=== PATIENT | male | born 1975 | race Two or more races ===

== ENCOUNTER 2019-04-14 16:16 | Emergency (ER) | payer MEDICAID, OTHER ==
[~2019-04-14] VITALS: Ht 167.6 cm; Wt 78.5 kg
--- NOTE | 2019-04-14 16:30 | NUR ---
RT Pt brought into ER with a Portex 7 trach on the vent with noted settings. Pt switched over to hospital ventilator, alarms are set an audible with BVM by bedside. GLUE WHEEL OPERATOR cuff pressure noted. Vent is plugged into red outlet. No respiratory distress noted at this time, will continue to monitor. Addendum: 04/14/19 at 1653 by ABRIL KILLIAN RT Amended: Links added.
--- NOTE | 2019-04-14 16:40 | NUR ---
ARAMIS Franco from [facility]"low O2dats vent settings was changed AC-SIMV, prior to dialysis appointment when we got to dialysis he desat". TO ER BED 8, HOOKED TO MONITOR, PROVIDED W WARM BLANKET, RT AT BEDSIDE, HOOKED TO VENTILATOR W SETTINGS: A/C 12, VT: 500, PEEP: 5, O2: 40%. DR SPEARS AT BEDSIDE
--- NOTE | 2019-04-14 17:32 | NUR ---
NOVELTY BALLOON ASSEMBLER AND PACKER AT BEDSIDE
--- NOTE | 2019-04-14 17:39 | NUR ---
TOBACCO CURER AT BEDSIDE
[2019-04-14] MEDS ORDERED: SIME80TA15 PO (17:41)
[2019-04-14] MEDS ORDERED: HEPA100D33 SQ (17:41)
[2019-04-14] MEDS ORDERED: CARB15DR99 OP (17:41)
[2019-04-14] MEDS ORDERED: INSU100V39 SQ (17:41)
[2019-04-14] MEDS ORDERED: DOCU-141 PO (17:41)
[2019-04-14] MEDS ORDERED: DARB40VI IJ (17:41)
[2019-04-14] MEDS ORDERED: FAMO20TA8 PO (17:41)
[2019-04-14] MEDS ORDERED: INSU100I26 SQ (17:41)
[2019-04-14] MEDS ORDERED: LIDOCAINE VISCOUS MM (17:41)
[2019-04-14] MEDS ORDERED: LACT1CAP61 PO (17:41)
[2019-04-14 17:50] LABS: BASOPHILS % (AUTO) 0.3 % (0.0-2.0); EOSINOPHILS % (AUTO) 2.4 % (0.0-6.0); HEMATOCRIT 32 % (39-51); HEMOGLOBIN 10.9 g/dL (13.5-17.5); LYMPHOCYTES # (AUTO) 0.8 /CMM (0.8-4.8); LYMPHOCYTES % (AUTO) 5.2 % (20.0-44.0); MEAN CORPUSCULAR HGB CONC 34 g/dl (31.0-36.0); MEAN CORPUSCULAR VOLUME 95 fL (80-96); MONOCYTES # (AUTO) 0.7 /CMM (0.1-1.30); MONOCYTES % (AUTO) 4.2 % (2.0-12.0); NEUTROPHILS % (AUTO) 87.9 % (43.0-81.0); RED BLOOD CELL COUNT(AUTO) 3.42 MIL/uL (4.5-6.0); WHITE BLOOD COUNT (AUTO) 15.9 K/uL (4.3-11.0)
[2019-04-14] MEDS ORDERED: MIDO5TAB GT (17:50)
[2019-04-14] MEDS ORDERED: ONDA4TAB11 GT (17:50)
[2019-04-14] MEDS ORDERED: NUT.237L67 GT (17:50)
[2019-04-14] MEDS ORDERED: SODI650T GT (17:50)
[2019-04-14] MEDS ORDERED: BISA10SU11 RC (17:50)
[2019-04-14] MEDS ORDERED: MIDO10TA GT (17:50)
[2019-04-14] MEDS ORDERED: ACET325T53 GT (17:50)
[2019-04-14] MEDS ORDERED: POLY17PO4 GT (17:50)
[2019-04-14] MEDS ORDERED: DIPH-530 GT (17:50)
[2019-04-14] MEDS ORDERED: ACET-868 GT (17:50)
[2019-04-14 17:56] LABS: ABG BASE EXCESS -4.2 mmol/L; ABG OXYGEN SATURATION 90.4 % (92.0-98.5); ABG PCO2 40.8 mmHg (35.0-45.0); ABG PH 7.336 (7.350-7.450); ABG PO2 64.1 mmHg (75.0-100.0); AaDO2 174.2 mmHg; COHb 0.3 % (0.5-1.5); MetHb 0.5 % (0.0-1.5); O2Hb 89.7 % (94.0-97.0); PEEP,BG 5 cm H2O; SITE, ABG Right Radial; VT, ABG 500 mL
[2019-04-14 18:11] LABS: CALCIUM, SERUM 9.4 mg/dL (8.5-10.1); CREATININE 6.7 mg/dL (0.6-1.3); POTASSIUM 4.3 mmol/L (3.5-5.1)
[2019-04-14 18:13] LABS: PLATELET COUNT (AUTO) 267 /CMM (150-450)
--- NOTE | 2019-04-14 18:17 | NUR ---
[facility] RT UNIT ETA 2044 OR 2129
--- NOTE | 2019-04-14 18:25 | NUR ---
REPORT GIVEN TO RAMESH GILLIS OF [facility] [phone]
--- NOTE | 2019-04-14 18:31 | NUR ---
CALLED BACK HERMAN AMARAL, SPOKE TO RAMESH GILLIS, MADE AWARE OF NEW CHAIR TIME FOR DIALYSIS 04/15 AT 1:15PM AT [facility].
--- NOTE | 2019-04-14 19:42 | NUR ---
Patient discharged to [id number] in stable condition, will be brought back to [facility]. Report given to EMT. Written and verbal after care instructions given. EMT verbalizes understanding of instruction.
[2019-04-14 19:45] VITALS: BP 131/87
[2019-04-14 20:19] LABS: BAND % (MANUAL) 2 % (0.0-5.0); EOSINOPHILS % (MANUAL) 1 % (0-4); LYMPHOCYTES % (MANUAL) 8 % (16-48); MONOCYTES % (MANUAL) 5 % (0-11.0); NEUTROPHILS % (MANUAL) 84 (42-76)
== END 2019-04-14 19:47 ==
LOC: ER 16:21
DX: J96.10 Chronic respiratory failure, unspecified whether with hypoxia or hypercapnia (principal); E11.22 Type 2 diabetes mellitus with diabetic chronic kidney disease; I12.0 Hypertensive chronic kidney disease with stage 5 chronic kidney disease or end stage renal disease; N18.6 End stage renal disease; K56.7 Ileus, unspecified; Z99.2 Dependence on renal dialysis; Z93.1 Gastrostomy status; Z98.890 Other specified postprocedural states; Z79.4 Long term (current) use of insulin; Z79.899 Other long term (current) drug therapy; Z79.01 Long term (current) use of anticoagulants
CPT/HCPCS: 31720; 36415; 36600; 71045-TC; 80048-TC; 82803-TC; 85025-TC; 85730-TC

== ENCOUNTER 2019-05-09 20:47 | Inpatient (IN) | payer OTHER ==
[~2019-05-09] VITALS: Ht 167.6 cm; Wt 70.8 kg
[~2019-05-09 20:47] MED LIST: ACET-868 GT; ACET325T53 GT; BISA10SU11 RC; CARB15DR99 OP; DARB40VI IJ; DIPH-530 GT; DOCU-141 PO; FAMO20TA8 PO; HEPA100D33 SQ; INSU100I26 SQ; INSU100V39 SQ; LACT1CAP61 PO; LIDOCAINE VISCOUS MM; MIDO10TA GT; MIDO5TAB GT; NUT.237L67 GT; ONDA4TAB11 GT; POLY17PO4 GT; SIME80TA15 PO; SODI650T GT
--- NOTE | 2019-05-09 20:55 | NUR ---
"BIB PRIVATE AMBULANCE FROM DIALYSIS C/O LOW BP" PT AAOX0, PT ON MONITOR, NAD NOTED, PENDING MD OVALLE
[2019-05-09] MEDS ORDERED: IV NS 0.9% 500 ML BAG IV ONE (21:30)
[2019-05-09 21:42] LABS: BASOPHILS # (AUTO) 0.1 /CMM (0.0-0.2); BASOPHILS % (AUTO) 0.8 % (0.0-2.0); EOSINOPHILS % (AUTO) 3.3 % (0.0-6.0); HEMATOCRIT 27 % (39-51); HEMOGLOBIN 9.3 g/dL (13.5-17.5); LYMPHOCYTES # (AUTO) 1.9 /CMM (0.8-4.8); LYMPHOCYTES % (AUTO) 15.6 % (20.0-44.0); MEAN CORPUSCULAR HGB CONC 34 g/dl (31.0-36.0); MEAN CORPUSCULAR VOLUME 95 fL (80-96); MONOCYTES # (AUTO) 0.9 /CMM (0.1-1.30); MONOCYTES % (AUTO) 6.9 % (2.0-12.0); NEUTROPHILS # (AUTO) 9.2 /CMM (1.8-8.9); NEUTROPHILS % (AUTO) 73.4 % (43.0-81.0); PLATELET COUNT (AUTO) 358 /CMM (150-450); WHITE BLOOD COUNT (AUTO) 12.5 K/uL (4.3-11.0)
[2019-05-09 21:51] LABS: CALCIUM, SERUM 9.3 mg/dL (8.5-10.1); CARBON DIOXIDE 26 mmol/L (21-32); CHLORIDE 100 mmol/L (98-107); CREATININE 2.8 mg/dL (0.6-1.3); GLUCOSE 147 mg/dL (74-106); POTASSIUM 3.6 mmol/L (3.5-5.1); SODIUM SERUM 137 mmol/L (136-145); UREA NITROGEN, BLOOD 28 mg/dL (7-18)
[2019-05-09 21:58] LABS: ALANINE AMINOTRANSFERASE 95 U/L (12-78); ALBUMIN 3.2 g/dL (3.4-5.0); ALKALINE PHOSPHATASE 259 U/L (46-116); ASPARTATE AMINOTRANSFERASE 46 U/L (15-37); BILIRUBIN,DIRECT 0.1 mg/dL (0.0-0.2); BILIRUBIN,TOTAL 0.2 mg/dL (0.2-1.0); TOTAL PROTEIN, SERUM 8.1 g/dL (6.4-8.2)
[2019-05-09] MEDS ORDERED: oxyCODONE HCL SR 20MG TAB.SR.12H PO STA (22:24)
[2019-05-09] MEDS ORDERED: VANCOMYCIN HCL 1 GM in IV D5W 260 ML IV ONE (22:30)
[2019-05-09] MEDS ORDERED: CEFTRIAXONE 1GM BAG (ER ONLY) 1 GM/50 ML PIGGYBACK IV ONE (22:30)
--- NOTE | 2019-05-09 22:41 | NUR ---
CALLED FOR BED, TURNED IN MOVE SHEET, AND PAGED PLASTICS PRODUCTION MACHINE OPERATOR.
--- NOTE | 2019-05-09 22:42 | NUR ---
TELE BED 115-1
[2019-05-09] MEDS ORDERED: VANCOMYCIN 1 GM VIAL ONE (22:58)
[2019-05-09] MEDS ORDERED: CEFTRIAXONE 1GM BAG (ER ONLY) 50 ML IV ONE (22:58)
--- NOTE | 2019-05-09 23:54 | NUR ---
REPORT GIVEN TO ALEXANDRA VELEZ FOR SHARON; PT WILL BE TRANSPORTED TO [address] [place] [address] VIA ACLS PROTOCOL
[2019-05-10] VITALS: BP 99/36
[2019-05-10] MEDS ORDERED: POLYETHYLENE GLYCOL 3350 17 GM POWD.PACK GT PRN
[2019-05-10] MEDS ORDERED: SODIUM BICARBONATE 650 MG TABLET GT PRN
[2019-05-10] MEDS ORDERED: ONDANSETRON 4 MG TAB.RAPDIS GT PRN
[2019-05-10] MEDS ORDERED: MORPHINE SULFATE INJ 2 MG/ML DISP.SYRIN IV PRN
[2019-05-10] MEDS ORDERED: MAGNESIUM HYDROXIDE 30 ML UDC PO PRN
[2019-05-10] MEDS ORDERED: ZOLPIDEM TARTRATE 5 MG TABLET PO PRN
[2019-05-10] MEDS ORDERED: HYDROCODONE/APAP 5/325MG 1 EACH TABLET PO PRN
[2019-05-10] MEDS ORDERED: ONDANSETRON HCL/PF 4 MG/2 ML VIAL IVP PRN
[2019-05-10] MEDS ORDERED: BISACODYL SUPP (10 MG) 10 MG/SUPP.RECT SUPP.RECT RC PRN
[2019-05-10] MEDS ORDERED: MAG HYDROX/AL HYDROX/SIMETH 30 ML UDC PO PRN
[2019-05-10] MEDS ORDERED: ACETAMINOPHEN 325 MG TABLET PO PRN
[2019-05-10] MEDS ORDERED: Z GUARD REMEDY 2 OZ OINT TP PRN
[2019-05-10] MEDS ORDERED: DEXTROSE 50%-WATER 50 ML DISP.SYRIN IV PRN
[2019-05-10] MEDS ORDERED: NEPRO VAN 237 ML CAN GT SCH
[2019-05-10] MEDS ORDERED: ZOSYN IVPB 3.375 G in IV D5W 50ml IV ONE (01:00)
[2019-05-10] MEDS: NEPRO 1,000 ML BOTTLE GT PRN (02:34)
[2019-05-10 04:00] VITALS: BP 88/42
[2019-05-10] MEDS: SIMETHICONE 80 MG TAB.CHEW PO SCH ×3 (05:48→21:11)
[2019-05-10] MEDS: MIDODRINE HCL (5MG) 5 MG TABLET GT PRN ×2 (05:53→13:50)
--- NOTE | 2019-05-10 06:17 | NUR ---
RN NOTES RECEIVED PATIENT AT ABOUT 2345 IN STABLE CONDITION. NO APPARENT DISTRESS NOTED. BREATHING EVEN AND UNLABORED, VENT SETTING WELL TOLERATED. RECEIVED FROM ER, VIA STRETCHER ACCOMPANIED BY 3 STAFF. EYES CLOSED, OBTUNDED. NO PHYSICAL MANIFESTATION OF PAIN OR DISCOMFORT. VITAL SIGNS WNL. STARTED FEEDING AT 45ML/HR, TOLERATING WELL. ADMITTED FOR LOW BLOOD PRESSURE AND SEPSIS. KEPT CLEAN AND DRY. WILL ENDORSE TO AM SHIFT FOR CONTINUITY OF CARE.
[2019-05-10] MEDS: BLOOD SUGAR DIAGNOSTIC 1 EACH STRIP IN SCH ×4 (06:35→21:22)
[2019-05-10] MEDS: INSULIN REGULAR, HUMAN 100 UNIT/ML 3 ML VIAL SQ PRN ×4 (06:36→21:23)
--- NOTE | 2019-05-10 07:30 | NUR ---
WAFER MOUNTER AM NOTES RECEIVED PATIENT IN BED, OPEN EYES, OBTUNDED, WITH PORTEX 7 TO MECHANICAL VENT, SETTING - AC 12 TV 500 FIO2 40% PEEP 5, BREATHING EVEN AND UNLABORED, SR HR 89 ON TELE MONITOR, NO SIGNS OF PAIN, OWEN MIDLINE LEAKING, WILL START ANOTHER IV ACCESS. RIGHT UPPER CHEST PERMA CATH CDI DRESSING, SITE CLEAR. GTF NEPRO AT 45 ML/HR, O RESIDUAL. SEE NURSING FLOWSHEET FOR SKIN ISSUES. SAFETY MEASURES IN PLACE. CALL LIGHT WITHIN REACH. WILL TURN AND REPOSITION Q 2HOURS. WILL CONT TO MONITOR.
[2019-05-10 08:00] VITALS: BP 95/45
[2019-05-10] MEDS ORDERED: FEE PK DOSING 1 MIN EA MC ONE (08:23)
[2019-05-10] MEDS: FAMOTIDINE (20 MG) 20 MG TABLET PO SCH (08:29)
[2019-05-10] MEDS: PANTOPRAZOLE 40 MG TABLET.DR PO SCH (08:29)
[2019-05-10] MEDS: DOCUSATE SODIUM 100 MG CAPSULE PO SCH ×2 (08:29→21:11)
[2019-05-10] MEDS: HEPARIN SODIUM, PORCINE 5000 UNITS/1 ML VIAL SQ SCH ×2 (08:32→21:13)
[2019-05-10] MEDS: INSULIN GLARGINE, 100 UNIT/ML CARTRIDGE SQ SCH ×2 (08:36→21:22)
[2019-05-10] MEDS ORDERED: INSULIN GLARGINE,BASAGLAR 100 UNIT/ML INSULN.PEN SQ SCH (09:00)
[2019-05-10] MEDS ORDERED: VANCOMYCIN POST DIALYSIS 500MG IV PRN ×2 (09:00)
[2019-05-10] MEDS ORDERED: oxyCODONE HCL SR 20MG TAB.SR.12H PO SCH (09:00)
--- NOTE | 2019-05-10 09:30 | NUR ---
NEWSPAPER DISTRIBUTOR SUPERVISOR NOTES DUE MEDS GIVEN.
[2019-05-10] MEDS: ZOSYN IVPB 2.25 G in IV D5W 50ml IV SCH ×2 (10:01→17:29)
[2019-05-10 10:37] LABS: BASOPHILS # (AUTO) 0.1 /CMM (0.0-0.2); BASOPHILS % (AUTO) 0.6 % (0.0-2.0); EOSINOPHILS % (AUTO) 4.6 % (0.0-6.0); HEMATOCRIT 25 % (39-51); HEMOGLOBIN 8.5 g/dL (13.5-17.5); LYMPHOCYTES # (AUTO) 1.7 /CMM (0.8-4.8); LYMPHOCYTES % (AUTO) 18.7 % (20.0-44.0); MEAN CORPUSCULAR HGB CONC 34 g/dl (31.0-36.0); MEAN CORPUSCULAR VOLUME 93 fL (80-96); MONOCYTES # (AUTO) 0.7 /CMM (0.1-1.30); MONOCYTES % (AUTO) 7.1 % (2.0-12.0); NEUTROPHILS # (AUTO) 6.3 /CMM (1.8-8.9); PLATELET COUNT (AUTO) 345 /CMM (150-450); RED BLOOD CELL COUNT(AUTO) 2.69 MIL/uL (4.5-6.0); WHITE BLOOD COUNT (AUTO) 9.1 K/uL (4.3-11.0)
[2019-05-10 10:49] LABS: ALBUMIN 2.7 g/dL (3.4-5.0); BILIRUBIN,TOTAL 0.3 mg/dL (0.2-1.0); CALCIUM, SERUM 8.7 mg/dL (8.5-10.1); CREATININE 3.4 mg/dL (0.6-1.3); MAGNESIUM 2.1 mg/dL (1.8-2.4); POTASSIUM 3.5 mmol/L (3.5-5.1)
[2019-05-10 11:18] LABS: THYROID STIMULATING HORMONE 2.171 uIU/mL (0.358-3.74)
[2019-05-10 12:00] VITALS: BP 80/35
[2019-05-10] MEDS ORDERED: PIPERACILLIN /TAZOBACTAM 3.375 G in IV D5W 50 ML IV SCH ×3 (12:00)
--- NOTE | 2019-05-10 12:00 | NUR ---
SPORTS MEDICINE TRAINER NOTES ACCUCHECK DONE. BS 132 MG/DL. 2 UNITS HUM R GIVEN PER SS.
[2019-05-10] MEDS: CARBOXYMETHYLCELLULOSE SODIUM 0.4 ML DROPERETTE EACHEYE SCH ×2 (12:11→21:12)
--- NOTE | 2019-05-10 13:50 | NUR ---
WORD PROCESSOR OPERATOR NOTES DR. SAMREEN WILSON NOTIFIED PT'S BP AT 80/35 MIDODRINE 5 MG GIVEN
--- NOTE | 2019-05-10 14:15 | NUR ---
NO PEEP PER DR. VERGARA. Addendum: 05/10/19 at 1417 by ROSLYN MCKAY RT Amended: Links added.
--- NOTE | 2019-05-10 14:30 | NUR ---
RN NOTES BP RECHECKED 93/48. PER DR. WILSON, GIVE 500 ML NS BOLUS
[2019-05-10] MEDS ORDERED: IV NS 0.9% 500 ML IV ONE (15:00)
[2019-05-10 16:00] VITALS: BP 101/46
--- NOTE | 2019-05-10 19:40 | NUR ---
ICU/SUBCONTRACT ADMINISTRATOR RECEIVED REPORT FROM DAY NURSE. SEE NURSING FLOW SHEET FOR ASSESSMENT ALONG WITH ANY SKIN ISSUES WHICH ARE ADDRESSED ALONG WITH INTERVENTIONS TO EACH ON THE FLOWSHEET. THERE ARE NO IVF THAT ARE ADDRESSED ON THE FLOWSHEET. PT WAS TURNED AND REPOSITIONED FOR COMFORT AND CARE. NO ACUTE DISTRESS SEEN AT THIS TIME. WILL CONTINUE TO MONITOR THIS PT.
[2019-05-10 20:00] VITALS: BP 95/52
--- NOTE | 2019-05-10 22:10 | NUR ---
CARLA/RADIOLOGIST DIAGNOSTIC PT WAS GIVEN PM CARE, NO BM SEEN AT THIS TIME, WILL MONITOR THIS. PT REMAINS ON CURRENT VENT SETTINGS WITH SATURATION AT 98-100%. PT WAS TURNED AND REPOSITIONED FOR COMFORT AND CARE. WILL CONTINUE TO MONITOR THIS PT. NO ACUTE DISTRESS SEEN AT THIS TIME.
--- NOTE | 2019-05-10 22:40 | NUR ---
CARLA/CASH CONTROLLER PT'S BLOOD SUGAR WAS 160, WHICH WAS COVERED WITH 30 OF LANTUS. WILL CONTINUE TO MONITOR THIS PT'S SUGAR ORDERED BY .
[2019-05-10] MEDS ORDERED: MEROPENEM 500 MG VIAL IV ONE (23:06)
--- NOTE | 2019-05-10 23:10 | NUR ---
CARLA/WOOD BOAT BUILDER SUPERVISOR INFECTIOUS DISEASED HERE TO SEE PT, ORDERED MERREM IVPB AND DISCONTINUED ZOSYN. CHANGES WERE MADE AND NOTIFIED CHARGE NURSE WHO THEN HUNG UP THE NEW ANTIBIOTICS. ALL ORDERED WERE CARRIED OUT.
[2019-05-10] MEDS: MEROPENEM 500 MG in IV NS 0.9% 50 ML IV SCH (23:14)
[2019-05-11] VITALS: BP 118/71
--- NOTE | 2019-05-11 00:15 | NUR ---
CARLA/PRESS OPERATOR PRINTING NEW MIDLINE PLACED ON PT TO THE LEFT UPPER ARM, 18G. RIGHT WAS LEAKING WHICH WAS D/C'D.
--- NOTE | 2019-05-11 03:16 | NUR ---
CARLA/SPA MANAGER SPUTUM WAS COLLECTED FOR CULTURE, WHICH WAS ORDERED BY ID.
[2019-05-11 04:00] VITALS: BP 108/61
--- NOTE | 2019-05-11 05:45 | NUR ---
CARLA/DOUGHNUT ICER MACHINE AM LABS WERE DONE, AWAIT FOR ANY ABNORMAL RESULTS.
[2019-05-11] MEDS: SIMETHICONE 80 MG TAB.CHEW PO SCH ×3 (05:52→21:43)
[2019-05-11] MEDS: CARBOXYMETHYLCELLULOSE SODIUM 0.4 ML DROPERETTE EACHEYE SCH ×3 (05:52→21:00)
[2019-05-11 06:57] LABS: BASOPHILS # (AUTO) 0.1 /CMM (0.0-0.2); BASOPHILS % (AUTO) 0.6 % (0.0-2.0); EOSINOPHILS % (AUTO) 4.6 % (0.0-6.0); HEMATOCRIT 26 % (39-51); HEMOGLOBIN 8.8 g/dL (13.5-17.5); LYMPHOCYTES # (AUTO) 1.9 /CMM (0.8-4.8); LYMPHOCYTES % (AUTO) 19.4 % (20.0-44.0); MEAN CORPUSCULAR HGB CONC 34 g/dl (31.0-36.0); MEAN CORPUSCULAR VOLUME 94 fL (80-96); MONOCYTES # (AUTO) 0.6 /CMM (0.1-1.30); MONOCYTES % (AUTO) 6.6 % (2.0-12.0); NEUTROPHILS # (AUTO) 6.7 /CMM (1.8-8.9); NEUTROPHILS % (AUTO) 68.8 % (43.0-81.0); PLATELET COUNT (AUTO) 365 /CMM (150-450); RED BLOOD CELL COUNT(AUTO) 2.73 MIL/uL (4.5-6.0); WHITE BLOOD COUNT (AUTO) 9.7 K/uL (4.3-11.0)
--- NOTE | 2019-05-11 07:30 | NUR ---
OBJECTIVE C DEVELOPER AM NOTES RECEIVED PATIENT IN BED, OPEN EYES, OBTUNDED, WITH PORTEX 7 TO MECHANICAL VENT, SETTING - AC 12 TV 500 FIO2 40% PEEP 5, BREATHING EVEN AND UNLABORED, SR HR 89 ON TELE MONITOR, NO SIGNS OF PAIN, PIERRE MIDLINE IN PLACE. CDI DRESSING. RT HAND IV ACCESS FLUSHES WELL. ALL SITES CLEAR. RIGHT UPPER CHEST PERMA CATH CDI DRESSING, SITE CLEAR. GTF NEPRO AT 45 ML/HR, O RESIDUAL. SEE NURSING FLOWSHEET FOR SKIN ISSUES. SAFETY MEASURES IN PLACE. CALL LIGHT WITHIN REACH. WILL TURN AND REPOSITION Q 2HOURS. WILL CONT TO MONITOR.
[2019-05-11 07:31] LABS: CALCIUM, SERUM 8.9 mg/dL (8.5-10.1); CREATININE 4.7 mg/dL (0.6-1.3); MAGNESIUM 2.3 mg/dL (1.8-2.4); PHOSPHORUS 4.3 mg/dL (2.5-4.9); POTASSIUM 4.1 mmol/L (3.5-5.1)
[2019-05-11 08:00] VITALS: BP 109/70
[2019-05-11] MEDS: BLOOD SUGAR DIAGNOSTIC 1 EACH STRIP IN SCH ×4 (08:18→21:40)
--- NOTE | 2019-05-11 08:18 | NUR ---
SCULLION CHIEF NOTES ACCUCHECK DONE. BS 161 MG/DL. 3 UNITS HUM R GIVEN PER SS.
[2019-05-11] MEDS: PANTOPRAZOLE 40 MG TABLET.DR PO SCH (08:19)
[2019-05-11] MEDS: FAMOTIDINE (20 MG) 20 MG TABLET PO SCH (08:34)
[2019-05-11] MEDS: INSULIN GLARGINE, 100 UNIT/ML CARTRIDGE SQ SCH ×2 (08:34→21:46)
[2019-05-11] MEDS: DOCUSATE SODIUM 100 MG CAPSULE PO SCH ×2 (08:35→21:43)
[2019-05-11] MEDS: HEPARIN SODIUM, PORCINE 5000 UNITS/1 ML VIAL SQ SCH ×2 (08:36→21:45)
[2019-05-11] MEDS: INSULIN REGULAR, HUMAN 100 UNIT/ML 3 ML VIAL SQ PRN ×3 (08:38→21:46)
--- NOTE | 2019-05-11 09:15 | NUR ---
GERIATRIC ASSISTANT NOTES PATIENT PICKED UP FOR CT OF ABDOMEN WITHOUT CONTRAST.
--- NOTE | 2019-05-11 09:30 | NUR ---
HEAD SAWYER NOTES DUE MEDS GIVEN
--- NOTE | 2019-05-11 11:53 | NUR ---
DROP HAMMER MECHANIC NOTES ACCUCHECK DONE. BS 109 MG/DL. NO INSULIN COVERAGE GIVEN AT THIS TIME. HD NURSE ALLAN AT BEDSIDE.
[2019-05-11 12:00] VITALS: BP 97/57
[2019-05-11] MEDS: HYDROCORTISONE SOD SUCCINATE 100 MG/2 ML VIAL IV SCH ×2 (13:30→17:16)
[2019-05-11] MEDS ORDERED: VANCOMYCIN 1 GM in IV D5W 250 ML IV ONE (14:30)
[2019-05-11 16:00] VITALS: BP 127/50
--- NOTE | 2019-05-11 18:57 | NUR ---
THREAD GRINDER CLOSING NOTES PATIENT RESTING IN BED, OPEN EYES, OBTUNDED, WITH PORTEX 7 TO MECHANICAL VENT, SETTING - AC 12 TV 500 FIO2 40% PEEP 5, BREATHING EVEN AND UNLABORED, SR HR 76 ON TELE MONITOR, NO SIGNS OF PAIN, OWEN MIDLINE LEAKING, RIGHT HAND G 22 IV ACCESS, FLUSHES WELL, SITE CLEAR. RIGHT UPPER CHEST PERMACATH CDI DRESSING, SITE CLEAR. GTF NEPRO AT 45 ML/HR, O RESIDUAL. SAFETY MEASURES IN PLACE. CALL LIGHT WITHIN REACH. TURNED AND REPOSITIONED Q 2HOURS. ALL NEEDS MET. WILL ENDORSE TO NEXT SHIFT FOR SHARON.
[2019-05-11 20:00] VITALS: BP 139/89
--- NOTE | 2019-05-11 21:00 | NUR ---
SENIOR AIR DIRECTOR NOTES PATIENT SEEN AND EXAMINED BY JAY COMMUTATOR PRESSER FROM ID. PER JAY, COLLECT URINE SPECIMEN, OK TO USE IN-AND-OUT CATHETER X1
[2019-05-11] MEDS: MEROPENEM 500 MG in IV NS 0.9% 50 ML IV SCH (23:18)
[2019-05-12] VITALS: BP 112/81
--- NOTE | 2019-05-12 | NUR ---
IMPREGNATOR AND DRIER NOTES URINE SPECIMEN COLLECTED VIA IN-AND-OUT CATHETERIZATION, MINIMAL AMOUNT OF DARK BROWN URINE OUTPUT, ASEPTIC TECHNIQUE USED, SPECIMEN SENT TO LAB FOR TESTING. WILL MONITOR CLOSELY
[2019-05-12 01:51] LABS: APPEARANCE,URINE TURBID (CLEAR); BILIRUBIN,URINE 1+ (NEGATIVE); BLOOD, URINE 3+ Ery/uL (NEGATIVE); COLOR,URINE BROWN (YELLOW); KETONES,URINE NEGATIVE (NEGATIVE); LEUKOCYTE ESTERASE ,URINE 3+ (NEGATIVE); NITRITE, URINE POSITIVE (NEGATIVE); PROTEIN,URINE 3+ mg/dl (NEGATIVE); UGLUCOSE NEGATIVE (NEGATIVE)
[2019-05-12 01:59] LABS: BACTERIA,URINE Moderate /HPF (None Seen); SQUAMOUS EPITHELIAL CELL,UR Rare /HPF (None Seen); WBC,URINE TOO NUMEROUS TO COUN /HPF (0-3)
--- NOTE | 2019-05-12 03:05 | NUR ---
RT Pt elda remains on [facility] vent settings t/o the night. No resp distress noted and sx prn. Elda is secure and patent. Addendum: 05/12/19 at 0306 by SAIMA NAVARRO RT Amended: Links added.
[2019-05-12 04:00] VITALS: BP 113/74
[2019-05-12] MEDS: CARBOXYMETHYLCELLULOSE SODIUM 0.4 ML DROPERETTE EACHEYE SCH ×3 (04:21→21:01)
[2019-05-12] MEDS: SIMETHICONE 80 MG TAB.CHEW PO SCH ×3 (04:54→21:01)
[2019-05-12 06:37] LABS: CALCIUM, SERUM 8.5 mg/dL (8.5-10.1); CREATININE 4.2 mg/dL (0.6-1.3); MAGNESIUM 2.2 mg/dL (1.8-2.4); POTASSIUM 3.6 mmol/L (3.5-5.1)
[2019-05-12 06:45] LABS: BASOPHILS % (AUTO) 0.5 % (0.0-2.0); EOSINOPHILS % (AUTO) 0.3 % (0.0-6.0); HEMATOCRIT 24 % (39-51); HEMOGLOBIN 8.4 g/dL (13.5-17.5); LYMPHOCYTES # (AUTO) 1.3 /CMM (0.8-4.8); LYMPHOCYTES % (AUTO) 15.2 % (20.0-44.0); MEAN CORPUSCULAR HGB CONC 35 g/dl (31.0-36.0); MEAN CORPUSCULAR VOLUME 93 fL (80-96); MONOCYTES # (AUTO) 0.6 /CMM (0.1-1.30); MONOCYTES % (AUTO) 6.9 % (2.0-12.0); NEUTROPHILS # (AUTO) 6.7 /CMM (1.8-8.9); NEUTROPHILS % (AUTO) 77.1 % (43.0-81.0); PLATELET COUNT (AUTO) 360 /CMM (150-450); RED BLOOD CELL COUNT(AUTO) 2.61 MIL/uL (4.5-6.0); WHITE BLOOD COUNT (AUTO) 8.7 K/uL (4.3-11.0)
[2019-05-12 07:00] LABS: PHOSPHORUS 3.1 mg/dL (2.5-4.9)
--- NOTE | 2019-05-12 07:35 | NUR ---
RN NOTE: RECEIVED PATIENT IN BED, OBTUNDED ABLE TO SPONTANEOUSLY OPEN HIS EYES. NONVERBAL ON VENT-TRACH DEPENDENT AND WAS SATURATING 100% WITH CURRENT VENT SETTING. NO FACIAL GRIMACING NOTED. ON PARKING LINE PAINTER SR HR= 93. (R) CHEST PERMACATH WAS NOTED INTACT WITH DRY DRESSING IN PLACED. HOB ELEVATED. PATIENT WAS RECEIVING GT FEEDING OF NEPHRO @45ML/HR AND NO RESIDUAL WAS NOTED. BED ALARMED AND LOCKED AT ALL TIMES. CALL LIGHT WITHIN REACH. NEEDS ANTICIPATED. ON CONTACT ISOLATION DUE TO HX OF CRE URINE AND C. DIFF.
[2019-05-12 08:00] VITALS: BP 112/62
[2019-05-12] MEDS ORDERED: DEXTROSE 50%-WATER 50 ML DISP.SYRIN IV PRN (08:00)
[2019-05-12] MEDS: NEPRO 1,000 ML BOTTLE GT PRN (08:25)
[2019-05-12] MEDS: BLOOD SUGAR DIAGNOSTIC 1 EACH STRIP IN SCH ×4 (08:41→21:13)
[2019-05-12] MEDS ORDERED: PANTOPRAZOLE 40 MG/PACK PACK GT SCH (09:00)
[2019-05-12] MEDS: HYDROCORTISONE SOD SUCCINATE 100 MG/2 ML VIAL IV SCH ×3 (09:24→17:41)
[2019-05-12] MEDS: DOCUSATE SODIUM 100 MG CAPSULE PO SCH ×2 (09:24→21:01)
[2019-05-12] MEDS: FAMOTIDINE (20 MG) 20 MG TABLET PO SCH (09:24)
[2019-05-12] MEDS: HEPARIN SODIUM, PORCINE 5000 UNITS/1 ML VIAL SQ SCH ×2 (09:25→21:04)
[2019-05-12] MEDS: INSULIN GLARGINE, 100 UNIT/ML CARTRIDGE SQ SCH ×2 (09:28→21:11)
[2019-05-12 12:00] VITALS: BP 126/72
[2019-05-12] MEDS: INSULIN REGULAR, HUMAN 100 UNIT/ML 3 ML VIAL SQ PRN ×3 (12:44→21:13)
[2019-05-12] MEDS ORDERED: MERO500V IV (14:53)
[2019-05-12 16:00] VITALS: BP_SYST 126; BP_SYST 129; BP_DIAS 72; BP_DIAS 81
[2019-05-12] MEDS ORDERED: LACTOBACILLUS RHAMNOSUS GG 1 EACH CAP.SPRINK GT SCH (17:00)
--- NOTE | 2019-05-12 17:00 | NUR ---
RN NOTE: CALLED AND SPOKE WITH KORY POWELL, BROTHER AND MADE HIM AWARE ABOUT THE PATIENT'S DISCHARGE TO THE MEDICAL CENTER.
--- NOTE | 2019-05-12 17:30 | NUR ---
RN NOTE: [phone] AND NOBODY ANSWERED THE PHONE CALL. UNABLE TO LEAVE A VOICEMAIL WELL. CALLED AND SPOKE WITH KORY POWELL, BROTHER AND HE GAVE THE TELEPHONE NUMBER OF THE [facility]'S DIRECTOR OF NURSES CIARA [phone]. CALLED AND LEFT A VOICEMAIL TO CIARA, DON AND AWAITING FOR RESPONSE IN ORDER TO GIVE REPORT FOR THE PATIENT'S RETURN TO THE FACILITY. CALLED AND INFORMED ROUGE SIFTER AND MILLER VINCE.
--- NOTE | 2019-05-12 19:45 | NUR ---
RN NOTE: BEDSIDE REPORT WAS GIVEN TO PM SHIFT NURSE FOR CONTINUITY OF CARE AND TO CONTINUE CONTACTING THE [facility] IN ORDER TO GIVE REPORT. EXIT CARE WAS DONE. HANDED ALL PAPERWORK TO PM SHIFT NURSE FOR DISCHARGE. ETA FOR THE AMBULNZ (EMT WITH RT) PICK-UP WAS 8:30 PM.
[2019-05-12 20:00] VITALS: BP 129/80
[2019-05-12] MEDS: MEROPENEM 500 MG in IV NS 0.9% 50 ML IV SCH (21:14)
--- NOTE | 2019-05-12 23:40 | NUR ---
RN NOTES RECEIVED PATIENT IN BED WITH NO DISTRESS NOTED. BREATHING EVEN AND UNLABORED. VENT SETTING WELL TOLERATED. NO PHYSICAL MANIFESTATION OF PAIN OR DISCOMFORT. OBTUNDED. EYES CLOSED. KEPT CLEAN AND DRY PICKED UP BY AMBULANCE AT 2330 IN STABLE CONDITION. IN NO APPARENT DISTRESS. NO SIGN OF PAIN OR DISCOMFORT FOR DISCHARGED TO [facility] SPOKE WITH CIARA GARCIA), REPORT WAS GIVEN AT AROUND 0800 AND INFORMED OF AMBULANCE ARRIVAL AT 2300. ALL MEDS GIVEN.
== END 2019-05-12 23:55 | DRG 720 ==
LOC: ER 20:55 → TELE1 22:46
PROVIDERS: ADMIT Nurse Practitioner Acute Care; ATTEND Nurse Practitioner Acute Care
PROC: 5A1945Z Respiratory Ventilation, 24-96 Consecutive Hours (ICD-10-PCS; principal; 2019-05-09)
PROC: 05H633Z Insertion of Infusion Device into Left Subclavian Vein, Percutaneous Approach (ICD-10-PCS; 2019-05-10)
PROC: 5A1D70Z Performance of Urinary Filtration, Intermittent, Less than 6 Hours Per Day (ICD-10-PCS; 2019-05-11)
DX: A41.9 Sepsis, unspecified organism (principal); G93.1 Anoxic brain damage, not elsewhere classified; Z99.11 Dependence on respirator [ventilator] status; J96.10 Chronic respiratory failure, unspecified whether with hypoxia or hypercapnia; R53.2 Functional quadriplegia; A04.72 Enterocolitis due to Clostridium difficile, not specified as recurrent; E87.2 Acidosis; D68.59 Other primary thrombophilia; I95.9 Hypotension, unspecified; I12.0 Hypertensive chronic kidney disease with stage 5 chronic kidney disease or end stage renal disease; E44.1 Mild protein-calorie malnutrition; N18.6 End stage renal disease; Z93.1 Gastrostomy status; Z99.2 Dependence on renal dialysis; E11.22 Type 2 diabetes mellitus with diabetic chronic kidney disease; R13.10 Dysphagia, unspecified; J98.11 Atelectasis; Z79.4 Long term (current) use of insulin; D63.1 Anemia in chronic kidney disease; E88.09 Other disorders of plasma-protein metabolism, not elsewhere classified; D64.9 Anemia, unspecified; Z68.25 Body mass index [BMI] 25.0-25.9, adult; Z86.74 Personal history of sudden cardiac arrest; E27.40 Unspecified adrenocortical insufficiency
CPT/HCPCS: 31720; 36415; 71045-TC; 76700-TC; 80048-TC; 80053-TC; 80061-TC; 80076-TC; 80202-TC; 81000-TC; 82533; 82962-TC; 83605-TC; 83735-TC; 84100-TC; 84443-TC; 84484-TC; 85025-TC; 85730-TC; 86706; 87040-TC; 87070-TC; 87081-TC; 87086-TC; 87186-TC; 87340; 94002-TC; 94003-TC; 94760-TC; 94762-TC; 99082-TC; A4216; A4623; A7526; G0378; J0696; J1644; J1720; J1815; J2185; J2543; J3370; J7040; J7050; J7060; Q0162

== ENCOUNTER 2020-01-16 14:52 | Inpatient (IN) | payer OTHER ==
[~2020-01-16] VITALS: Ht 165.1 cm; Wt 71.4 kg
[~2020-01-16 14:52] MED LIST changes: -DARB40VI IJ; +DARB40VI IM; +DOCU-141 GT; -DOCU-141 PO; +FAMO20TA8 GT; -FAMO20TA8 PO; +LACT1CAP61 GT; -LACT1CAP61 PO; +MERO500V21 IV; -MIDO5TAB GT; +MIDO5TAB4 GT
--- NOTE | 2020-01-16 15:19 | NUR ---
PAGED VIP NEPHRO SAP PI DEVELOPER
--- NOTE | 2020-01-16 15:26 | NUR ---
RT NOTE PT PLACED ON VENT PER MD ORDER. SETTINGS ENDORSED BY TRANSPORT RT AC 14 500 40% +5. PT HAS SHILEY 6 XLT DISTAL CUFFED TRACH TUBE IN PLACE. CUFF INFLATED. TRACH TUBE MIDLINE AND SECURE. ALARMS SET PER PROTOCOL AND AUDIBLE. AMBU BAG AT BED SIDE. VENT PLUGGED IN TO RED OUTLET. NO DISTRESS NOTED. Addendum: 01/16/20 at 1529 by BLANCA HARVEY RT Amended: Links added.
--- NOTE | 2020-01-16 16:04 | NUR ---
PAGED DR HEREDIA
[2020-01-16 17:07] LABS: BASOPHILS # (AUTO) 0.2 /CMM (0.0-0.2); BASOPHILS % (AUTO) 1.3 % (0.0-2.0); EOSINOPHILS % (AUTO) 0.8 % (0.0-6.0); HEMATOCRIT 24 % (39-51); HEMOGLOBIN 7.9 g/dL (13.5-17.5); LYMPHOCYTES # (AUTO) 1.9 /CMM (0.8-4.8); LYMPHOCYTES % (AUTO) 14.5 % (20.0-44.0); MEAN CORPUSCULAR HGB CONC 33 g/dl (31.0-36.0); MEAN CORPUSCULAR VOLUME 91 fL (80-96); MONOCYTES # (AUTO) 0.8 /CMM (0.1-1.30); MONOCYTES % (AUTO) 6.4 % (2.0-12.0); NEUTROPHILS # (AUTO) 9.9 /CMM (1.8-8.9); RED BLOOD CELL COUNT(AUTO) 2.67 MIL/uL (4.5-6.0); WHITE BLOOD COUNT (AUTO) 12.9 K/uL (4.3-11.0)
[2020-01-16 17:29] LABS: ALBUMIN 2.8 g/dL (3.4-5.0); BILIRUBIN,TOTAL 0.3 mg/dL (0.2-1.0); CALCIUM, SERUM 9.3 mg/dL (8.5-10.1); CREATININE 6.9 mg/dL (0.6-1.3); TOTAL PROTEIN, SERUM 7.7 g/dL (6.4-8.2)
[2020-01-16 17:44] LABS: BAND % (MANUAL) 2 % (0.0-5.0); EOSINOPHILS % (MANUAL) 1 % (0-4); LYMPHOCYTES % (MANUAL) 15 % (16-48); MONOCYTES % (MANUAL) 5 % (0-11.0); NEUTROPHILS % (MANUAL) 77 (42-76); PLATELET COUNT (AUTO) 298 /CMM (150-450)
[2020-01-16 17:52] LABS: D-DIMER 1.37 mg/L(FEU (0.17-0.50)
[2020-01-16] MEDS ORDERED: NA P133E RC (17:53)
[2020-01-16] MEDS ORDERED: AMIN30LI2 GT (17:53)
[2020-01-16] MEDS ORDERED: POLY15DR40 EACHEYE (17:53)
[2020-01-16] MEDS ORDERED: FERR300L GT (17:53)
[2020-01-16] MEDS ORDERED: [UNRECOGNIZED DRUG - CODE] TP (17:53)
[2020-01-16] MEDS ORDERED: INSU100I26 SQ (17:53)
[2020-01-16] MEDS ORDERED: IPRA3AMP23 IH ×2 (17:53)
[2020-01-16] MEDS ORDERED: PHOS250T2 GT (17:53)
[2020-01-16] MEDS ORDERED: ONDA-97 GT (17:53)
[2020-01-16] MEDS ORDERED: GLUC1KIT IM (17:53)
--- NOTE | 2020-01-16 18:25 | NUR ---
KORY POWELL BROTHER LEFT CONTACT # [phone]
[2020-01-16 18:43] LABS: C-REACTIVE PROTEIN 17.3 mg/dL (0.0-0.9)
--- NOTE | 2020-01-16 19:39 | NUR ---
URINE COLLECTED AND SENT TO THE LAB.
--- NOTE | 2020-01-16 19:51 | NUR ---
VENT SETTING: AC12, 500VT, 40%, +5PEEP
[2020-01-16 20:21] LABS: APPEARANCE,URINE Cloudy (CLEAR); BILIRUBIN,URINE SMALL (NEGATIVE); BLOOD, URINE Large Ery/uL (NEGATIVE); COLOR,URINE Brown (YELLOW); KETONES,URINE Negative (NEGATIVE); LEUKOCYTE ESTERASE ,URINE Large (NEGATIVE); NITRITE, URINE Negative (NEGATIVE); PH,URINE 8.5 (5.0-8.0); PROTEIN,URINE >=300 mg/dl (NEGATIVE); UGLUCOSE Negative (NEGATIVE); UROBILINOGEN,URINE 0.2 EU/dL (0.2)
--- NOTE | 2020-01-16 20:21 | NUR ---
REPORT GIVEN TO CHRISTAL VELEZ FOR CONTINUITY OF CARE.
--- NOTE | 2020-01-16 20:36 | NUR ---
pt being transported to unit on [facility] with emt, rt and rn at bedside w/ acls protocol.
[2020-01-16 20:45] VITALS: BP 118/68
--- NOTE | 2020-01-16 20:45 | NUR ---
GAS APPLIANCE SERVICER HELPER ADMITTING NOTES PATIENT ARRIVED ON UNIT VIA GURNEY, ACCOMPANIED BY ER STAFF AND AUTO BODY REPAIR TECHNICIAN; PATIENT IS VENT-DEPENDENT; NO CHANGES IN VENT SETTINGS AT THIS TIME, PATIENT TOLERATING VENT SETTINGS; NO SOB NOTED, NO S/S OF ACUTE RESPIRATORY DISTRESS NOTED; TELE MONITOR ATTACHED; READS SINUS RHYTHM WITH 98BPM; VITAL SIGNS STABLE; PATIENT IS AWAKE, A/OX1, ONLY RESPONSIVE TO PAIN; PATIENT IS NON-VERBAL, WITH TRACH IN PLACE; GTUBE INTACT, SKIN ASSESSMENT COMPLETED; PATIENT HAS SACRAL SCAR AND WOUNDS IN PERINEAL AREA; PICTURES TAKEN AND FILED IN PATIENT BINDER; SAFETY PRECAUTIONS IN PLACE; BED LOCKED IN LOW POSITION; SIDE RAILS X2; WILL CONTINUE TO MONITOR
[2020-01-16 21:02] LABS: BACTERIA,URINE Few /HPF (None Seen); SQUAMOUS EPITHELIAL CELL,UR Few /HPF (None Seen)
--- NOTE | 2020-01-16 21:29 | NUR ---
PAVING CONTRACTOR NOTES SPOKE WITH DR. BERGERON REGARDING PATIENT AND FOR ADMITTING ORDERS; STATES TO CONTINUE MEDS FROM CUSTODIAL AND AWAIT FOR COVID19 RESULTS; UNAWARE WHICH NURSING FACILITY PATIENT CAME FROM, WILL CONTACT FAMILY MEMBERS.
--- NOTE | 2020-01-16 21:30 | NUR ---
QUILTING MACHINE OPERATOR NOTES MED RECON COMPLETED BY ZITA; RECEIVED FAX FROM [facility], REGARDING PATIENT MEDICATIONS WELL; SPO2: 100% WILL CONTINUE TO MONITOR
--- NOTE | 2020-01-16 21:40 | NUR ---
CYLINDER BLOCK MECHANIC NOTES PATIENT CAME FROM [facility] . SPOKE WITH EMPLOYEE TO FAX PATIENT MEDICATION IN ORDER TO CONTINUE MEDICATIONS DURING HOSPITALIZATION; AWAITING FAX FROM SNF. CHARGE NURSE AWARE
[2020-01-17] VITALS (7 sets, daily range): BP systolic 93–140; BP diastolic 56–74
--- NOTE | 2020-01-17 06:31 | NUR ---
SUPERVISORY AIDE CLOSING NOTES PATIENT RESTING IN BED COMFORTABLY, TRACH PATIENT, NON-VERBAL; BREATHING EVEN AND UNLABORED, NO SOB NOTED; NO S/S OF ACUTE RESPIRATORY DISTRESS NOTED; PATIENT TOLERATING VENT SETTINGS WELL; NO CHANGES THROUGHOUT SHIFT; TELE MONITOR READS SINUS RHYTHM 98BPM; R FA #20 INTACT AND PATENT; FLUSHING WELL, NO S/S OF REDNESS OR INFILTRATION; GTUBE IN PLACE; AWAITING DIETARY ORDERS; ALL NEEDS RENDERED; SAFETY PRECAUTIONS IN PLACE; BED LOCKED IN LOW POSITION; SIDE RAILS X2; WILL ENDORSE SHARON TO ONCOMING NURSE
[2020-01-17 07:08] LABS: BASOPHILS % (AUTO) 0.4 % (0.0-2.0); HEMATOCRIT 24 % (39-51); LYMPHOCYTES # (AUTO) 1.3 /CMM (0.8-4.8); LYMPHOCYTES % (AUTO) 14.6 % (20.0-44.0); MEAN CORPUSCULAR HGB CONC 34 g/dl (31.0-36.0); MEAN CORPUSCULAR VOLUME 90 fL (80-96); MONOCYTES # (AUTO) 0.5 /CMM (0.1-1.30); MONOCYTES % (AUTO) 5.5 % (2.0-12.0); NEUTROPHILS # (AUTO) 7.1 /CMM (1.8-8.9); NEUTROPHILS % (AUTO) 78.5 % (43.0-81.0); PLATELET COUNT (AUTO) 407 /CMM (150-450); RED BLOOD CELL COUNT(AUTO) 2.66 MIL/uL (4.5-6.0)
[2020-01-17 07:30] LABS: CALCIUM, SERUM 9.6 mg/dL (8.5-10.1); POTASSIUM 4.3 mmol/L (3.5-5.1)
--- NOTE | 2020-01-17 07:30 | NUR ---
institutional commodity analyst Notes Received patient from campaign marketing specialist. He is vented. Saturating 100% on current vent settings. Assist Control 12 TV 500mL 40% 02 PEEP 5. Rule out COVID due to abnormal lab findings: Elevated CRP, CXR c Atelectasis. Sinus rhythm on the Tele Monitor. On HD, scheduled for today. Skin issues in perineum. Patient has RFA IV 20g. Flushes well. Will continue to monitor. Bed in lowest position, locked. Call light within reach. Patient needs attended to.
[2020-01-17 07:40] LABS: CREATININE 7.7 mg/dL (0.6-1.3)
--- NOTE | 2020-01-17 10:00 | NUR ---
town marshal Notes HD Nurse at bedside. Med recon list faxed to pharmacy. Waiting for medications to be administered. Patient stable will continue to monitor.
[2020-01-17] MEDS ORDERED: NA PHOS,M-B/NA PHOS,DI-BA 1 EA ENEMA RC PRN (11:00)
[2020-01-17] MEDS ORDERED: SODIUM BICARBONATE 650 MG TABLET GT PRN (11:00)
[2020-01-17] MEDS ORDERED: Medication Not On Formulary EA (Glucagon,Human Recombinant (Glucagon Emergency Kit) 1 MG IM PRN (11:00)
[2020-01-17] MEDS ORDERED: NEPRO 1,000 ML BOTTLE GT SCH (11:00)
[2020-01-17] MEDS ORDERED: ACETAMINOPHEN 650 MG/20.3 ML UDC GT PRN (11:00)
[2020-01-17] MEDS ORDERED: BISACODYL SUPP (10 MG) 10 MG/SUPP.RECT SUPP.RECT RC PRN (11:00)
--- NOTE | 2020-01-17 11:24 | NUR ---
physician compensation analyst Notes Lab called. Notified of Gram Positive blood cultures.To be sent to [facility] for further testing. Will inform physician.
[2020-01-17] MEDS ORDERED: ALTEPLASE CATHFLO 2 MG/VIAL XX ONE (11:30)
[2020-01-17] MEDS ORDERED: diphenhydrAMINE HCL ELIX 25 MG/10 ML UDC GT PRN (11:30)
[2020-01-17] MEDS ORDERED: ONDANSETRON 4 MG TAB.RAPDIS GT PRN (11:30)
[2020-01-17] MEDS ORDERED: ALBUTEROL SULFATE INH 18 GM HFA.AER.AD IH PRN (11:30)
--- NOTE | 2020-01-17 12:22 | NUR ---
chief design branch Notes Paged MD regarding clarification of Midodrine order. Asked if he wants order changed to PRN HD. Also informed provider of gram positive bacteria in blood cultures. Will continue to monitor. Waiting for physician response.
[2020-01-17] MEDS ORDERED: ALBUTEROL SULFATE INH 18 GM HFA.AER.AD IH SCH (13:30)
[2020-01-17] MEDS: IPRATROPIUM BROMIDE 14 GM INHALER (or 12.9 GM) IH SCH ×2 (13:30→20:26)
[2020-01-17] MEDS: LACTOBACILLUS RHAMNOSUS GG 1 EACH CAP.SPRINK GT SCH ×2 (13:43→21:05)
[2020-01-17] MEDS: MIDODRINE HCL (5MG) 5 MG TABLET GT SCH (13:43)
[2020-01-17] MEDS: PROSOURCE / PROSTAT (PYXIS) 30 ML UDC GT SCH ×2 (13:44→17:06)
[2020-01-17] MEDS: POLYVINYL ALCOHOL 15 ML BOTTLE EACHEYE SCH ×2 (13:45→17:05)
--- NOTE | 2020-01-17 14:00 | NUR ---
physical anthropologist Notes Spoke with Dr. Finesse Wood, clarified Midodrine order. He would like that given PRN HD. He also wants to give Vanco dosed by pharmacy for finding of gram positive bacteria in the blood. Will continue to monitor.
--- NOTE | 2020-01-17 16:00 | NUR ---
oracle obiee developer Notes Eye drops at bedside for infection control risk. Will endorse this to oncoming shift.
[2020-01-17] MEDS ORDERED: FEE PK DOSING 1 MIN EA MC ONE (16:16)
[2020-01-17] MEDS ORDERED: VANCOMYCIN 1 GM in IV D5W 250 ML IV ONE (16:30)
[2020-01-17] MEDS ORDERED: VANCOMYCIN 500 MG in IV D5W 100 ML IV PRN (16:30)
--- NOTE | 2020-01-17 16:34 | NUR ---
child and family therapist Notes Central supply called need IV pump to give vancomycin. Will follow up soon to see if it is available.
--- NOTE | 2020-01-17 17:16 | NUR ---
surveillance analyst Notes Called central supply, second time calling and leaving message. No IV pump or Feeding Tube pump brought to unit. Will attempt to follow up again shortly before shift change.
--- NOTE | 2020-01-17 18:39 | NUR ---
conservation coordinator Notes Nursing Warehouse Administrator called as two tries to reach out to central supply. Vancomycin is in the refrigerator. Explained that we need a Kangaroo Pump for feeding and a IV pump. He has said He will reach out to [facility] to help.
--- NOTE | 2020-01-17 18:41 | NUR ---
newspaper managing editor Notes Patient resting in bed comfortably. No acute changes. Body temperature WNL. Will endorse patient to shift supervisor film processing.
[2020-01-17] MEDS: GLUCERNA 1.2 1,000 ML BOTTLE NG PRN ×2 (19:52→23:06)
[2020-01-17] MEDS: CEFEPIME 1 GM in IV D5W 50 ML IV SCH (20:54)
[2020-01-17] MEDS: ACETAMINOPHEN 650 MG/20.3 ML UDC GT PRN (21:05)
[2020-01-17] MEDS: DOCUSATE SODIUM LIQ 100 MG/10 ML UDC GT SCH (21:05)
[2020-01-17] MEDS: INSULIN GLARGINE, 100 UNIT/ML CARTRIDGE SQ SCH (21:23)
--- NOTE | 2020-01-17 22:40 | NUR ---
RN NOTE WITH NEW ORDER FROM SHOE STOCK ASSOCIATE ([employer]) FOR MILD INSULIN SLIDING SCALE Q6H. ORDER NOTED AND CARRIED OUT.
[2020-01-17] MEDS ORDERED: DEXTROSE 50%-WATER 50 ML DISP.SYRIN IV PRN (23:00)
[2020-01-17] MEDS: NEPRO 1,000 ML BOTTLE GT PRN (23:06)
--- NOTE | 2020-01-17 23:07 | NUR ---
RN NOTE CLARIFICATION OF ORDER: TUBE FEEDING NEPRO 1.8 @55ML/HOUR X 18 HOURS VIA GT. ORDER NOTED AND CARRIED OUT. Addendum: 01/17/20 at 2332 by ALAN MENDOZA RN STARTED AT 30ML/HOUR. WILL MONITOR TOLERANCE.
[2020-01-17] MEDS: BLOOD SUGAR DIAGNOSTIC 1 EACH STRIP IN SCH (23:18)
[2020-01-17] MEDS: INSULIN REGULAR, HUMAN 100 UNIT/ML 3 ML VIAL SQ PRN (23:21)
[2020-01-18] VITALS: BP 138/65
[2020-01-18] MEDS: IPRATROPIUM BROMIDE 14 GM INHALER (or 12.9 GM) IH SCH ×4 (01:02→20:08)
[2020-01-18 04:00] VITALS: BP 141/60
[2020-01-18] MEDS: INSULIN REGULAR, HUMAN 100 UNIT/ML 3 ML VIAL SQ PRN ×3 (05:39→19:26)
[2020-01-18] MEDS: BLOOD SUGAR DIAGNOSTIC 1 EACH STRIP IN SCH ×3 (05:41→18:00)
--- NOTE | 2020-01-18 05:46 | NUR ---
RN NOTE PATIENT SHOWING ABNORMAL CARDIAC RHYTHM DIFFERENT FROM HIS BASELINE (SINUS TACHYCARDIA). PT IS IN NO APPARANT ACUTE DISTRESS. PAGED DR. NIETO WITH ORDER TO DO 12 LEAD EKG. ORDER NOTED AND CARRIED OUT.
--- NOTE | 2020-01-18 06:21 | NUR ---
RN NOTE' 12 LEAD EKG BEING DONE BY 2 RTS AT BEDSIDE. PATIENT IS CURRENTLY SHOWING SINUS TACHYCARDIA (105) ON THE MONITOR.
--- NOTE | 2020-01-18 06:34 | NUR ---
RN CLOSING NOTE NO NEW ORDERS GIVEN FOR 12 LEAD EKG RESULT. PT CURRENTLY SHOWING SINUS TACHYCARDIA ON THE MONITOR. PATIENT IN SEMI MATHUR'S POSITION. NON VERBAL BUT PHYSICALLY RESPONSIVE TO VERBAL AND TACTILE STIMULI. ON MECHANICAL VENTILATOR AND TOLERATING SETTINGS WELL. RESPIRATIONS EVEN AND UNLABORED. TRACH MID LINE AND IN PLACE. BLE OFFLOADED. CALL LIGHT WITHIN REACH, SAFETY MEASURES IN PLACE, WILL ENDORSE TO MORNING RN FOR CONTINUATION OF CARE.
[2020-01-18 08:00] VITALS: BP 119/56
--- NOTE | 2020-01-18 08:15 | NUR ---
clerical aide Notes Received patient from manufacturing supervisor 2nd shift. He is vented. Saturating 100% on current vent settings. Assist Control 12 TV 500mL 40% 02 PEEP 5. COVID - new result. Sinus rhythm on the Tele Monitor. HD yesterday 1000mL removed. Nephro running at 55cc an hour. Skin issues in perineum. Patient has RFA IV 20g. Flushes well. Will continue to monitor. Bed in lowest position, locked. Call light within reach. Patient needs attended to.
[2020-01-18 08:39] LABS: BASOPHILS % (AUTO) 0.4 % (0.0-2.0); EOSINOPHILS % (AUTO) 0.8 % (0.0-6.0); HEMATOCRIT 24 % (39-51); HEMOGLOBIN 8.1 g/dL (13.5-17.5); LYMPHOCYTES # (AUTO) 0.5 /CMM (0.8-4.8); LYMPHOCYTES % (AUTO) 5.5 % (20.0-44.0); MEAN CORPUSCULAR HGB CONC 33 g/dl (31.0-36.0); MEAN CORPUSCULAR VOLUME 89 fL (80-96); MONOCYTES # (AUTO) 0.5 /CMM (0.1-1.30); MONOCYTES % (AUTO) 4.9 % (2.0-12.0); NEUTROPHILS # (AUTO) 8.8 /CMM (1.8-8.9); NEUTROPHILS % (AUTO) 88.4 % (43.0-81.0); PLATELET COUNT (AUTO) 360 /CMM (150-450); RED BLOOD CELL COUNT(AUTO) 2.73 MIL/uL (4.5-6.0); WHITE BLOOD COUNT (AUTO) 9.9 K/uL (4.3-11.0)
[2020-01-18 09:10] LABS: CALCIUM, SERUM 8.8 mg/dL (8.5-10.1); MAGNESIUM 2.8 mg/dL (1.8-2.4); PHOSPHORUS 4.8 mg/dL (2.5-4.9); POTASSIUM 4.4 mmol/L (3.5-5.1)
[2020-01-18 09:22] LABS: CREATININE 8.3 mg/dL (0.6-1.3)
[2020-01-18] MEDS: K PHOS NEUTRAL 250 MG TABLET GT SCH (09:23)
[2020-01-18] MEDS: FERROUS SULFATE UDC 300 MG/5 ML UDC GT SCH (09:23)
[2020-01-18] MEDS: LACTOBACILLUS RHAMNOSUS GG 1 EACH CAP.SPRINK GT SCH ×2 (09:23→21:04)
[2020-01-18] MEDS: FAMOTIDINE (20 MG) 20 MG TABLET GT SCH (09:23)
[2020-01-18] MEDS: PROSOURCE / PROSTAT (PYXIS) 30 ML UDC GT SCH ×3 (09:24→17:39)
[2020-01-18] MEDS: DOCUSATE SODIUM LIQ 100 MG/10 ML UDC GT SCH ×2 (09:24→21:04)
[2020-01-18] MEDS: POLYVINYL ALCOHOL 15 ML BOTTLE EACHEYE SCH ×2 (09:24→17:39)
[2020-01-18] MEDS: INSULIN GLARGINE, 100 UNIT/ML CARTRIDGE SQ SCH ×2 (09:28→21:28)
[2020-01-18 12:00] VITALS: BP 119/63
[2020-01-18 16:00] VITALS: BP 98/50
[2020-01-18] MEDS ORDERED: LIDOCAINE 1%-EPI 1:100,000 20 ML VIAL TP ONE (16:00)
--- NOTE | 2020-01-18 19:00 | NUR ---
day care provider Notes Patient resting in bed comfortably. No acute changes. Body temperature elevated. Finesse Wood notified at 1300 of body temperature , did not want any interventions at this time. ELECTRIC METER INSTALLER HELPER removed portacath, plan to reinsert when infection is cleared up. Portacath sent for cx and sensitivity. Will endorse patient to night monitor.
[2020-01-18 20:00] VITALS: BP 103/57
[2020-01-18] MEDS: CEFEPIME 1 GM in IV D5W 50 ML IV SCH (20:24)
--- NOTE | 2020-01-18 22:50 | NUR ---
RN NOTE REPORT GIVEN TO 3 RUPERT NURSE FOR CONTINUATION OF CARE.
--- NOTE | 2020-01-18 23:15 | NUR ---
RN NOTE PATIENT TRANSFERRED TO ROOM 329 IN STABLE CONDITION ACCOMPANIED BY 2 CNAS, 1 RT AND CHARGE NURSE.
--- NOTE | 2020-01-18 23:30 | NUR ---
GUARD SUPERVISOR NOTES PATIENT RECEIVED FROM CARLA. CHART RECEIVED AND PT MEDICATIONS. PATIENT IN STABLE CONDITION VITALS TAKEN 140/75, HR 95, RR 15, T 98.9, O2 100%. SAFETY PRECAUTIONS IN PLACE WITH BED IN LOWEST POSITION, CALL LIGHT WITHIN REACH, BREAKS ON, SIDE RAILS UP. WILL CONTINUE TO MONITOR THROUGHOUT THE NIGHT.
[2020-01-18] MEDS: NEPRO 1,000 ML BOTTLE GT PRN (23:34)
[2020-01-19] VITALS: BP 140/75
[2020-01-19] MEDS: BLOOD SUGAR DIAGNOSTIC 1 EACH STRIP IN SCH ×4 (00:49→17:55)
[2020-01-19] MEDS: INSULIN REGULAR, HUMAN 100 UNIT/ML 3 ML VIAL SQ PRN ×4 (00:52→17:57)
[2020-01-19] MEDS: IPRATROPIUM BROMIDE 14 GM INHALER (or 12.9 GM) IH SCH ×4 (01:38→20:01)
[2020-01-19 04:00] VITALS: BP 130/70
--- NOTE | 2020-01-19 06:43 | NUR ---
WORD PROCESSOR CLOSING NOTES PATIENT IN BED, A/O X 0 OBTUNDED. TOLERATING VENT SETTING WELL, BREATHING EVEN AND UNLABORED, NO SOB NOTED. NO SIGNS OF ACUTE DISTRESS. NO COMPLAINTS OF PAIN OR DISCOMFORT- NO FACIAL GRIMACING NOTED. TLE MONITOR READING SR 82 WITH BBB. GTUBE FEEDING RUNNING NEPRO @ 55 ML HR- TOLERATING WELL. IV LOCATED ON R FA #20. SAFETY PRECAUTIONS IN PLACE WITH BED IN LOWEST POSITION, CALL LIGHT WITHIN REACH, BREAKS ON, SIDE RAILS UP. WILL ENDORSE TO ONCOMING SHIFT ABOUT SHARON.
--- NOTE | 2020-01-19 08:00 | NUR ---
WARPING MILL OPERATOR OPENING NOTES Received Patient asleep and resting in bed. Obtunded. VS stable with no acute distress. Breathing even and unlabored on trachea and vent with no respiratory distress. No signs and symptoms of pain. Telemonitor in place and patent reading SR with BBB and HR-87. Gtube in place and patent with Nepro infusing at 55ml/hr. 20g PIV on RFA clean, intact, patent and flushing well. Safety precautions in place. Bed locked and set to lowest position with side rails x 2 up. All needs rendered at this time. Call light within reach. Will continue to monitor.
[2020-01-19 08:32] VITALS: BP 126/75
[2020-01-19] MEDS: MIDODRINE HCL (5MG) 5 MG TABLET GT SCH (08:54)
[2020-01-19] MEDS: DOCUSATE SODIUM LIQ 100 MG/10 ML UDC GT SCH ×2 (08:54→20:05)
[2020-01-19] MEDS: PROSOURCE / PROSTAT (PYXIS) 30 ML UDC GT SCH ×2 (08:54→12:36)
[2020-01-19] MEDS: FAMOTIDINE (20 MG) 20 MG TABLET GT SCH (08:54)
[2020-01-19] MEDS: POLYVINYL ALCOHOL 15 ML BOTTLE EACHEYE SCH ×2 (08:54→16:35)
[2020-01-19] MEDS: LACTOBACILLUS RHAMNOSUS GG 1 EACH CAP.SPRINK GT SCH ×2 (08:54→20:05)
[2020-01-19] MEDS: FERROUS SULFATE UDC 300 MG/5 ML UDC GT SCH (08:54)
[2020-01-19] MEDS: K PHOS NEUTRAL 250 MG TABLET GT SCH (08:54)
[2020-01-19] MEDS: INSULIN GLARGINE, 100 UNIT/ML CARTRIDGE SQ SCH ×2 (08:59→21:27)
--- NOTE | 2020-01-19 12:07 | NUR ---
WOUND CARE CONSULT: PT PRESENTS WITH SCARRING TO RT GROIN AREA AND TO SACRUM, PRESENT ON ADMISSION. RECOMMENDATIONS MADE FOR SKIN PROTECTION. DISCUSSED WITH NURSING STAFF. ISOFLEX LOW AIRLOSS BED TO BE PLACED WHEN AVAILABLE. WILL SEE PRN. MCMULLEN IN AGREEMENT WITH PLAN OF CARE. Addendum: 01/19/20 at 1208 by EMMA DIAZ WNDNU Amended: Links added.
[2020-01-19] MEDS ORDERED: Z GUARD REMEDY 2 OZ OINT TP PRN (12:30)
[2020-01-19] MEDS: Z GUARD REMEDY 2 OZ OINT TP SCH (12:34)
[2020-01-19 16:57] VITALS: BP 116/70
--- NOTE | 2020-01-19 18:28 | NUR ---
FILM COLOR TESTER CLOSING NOTES Patient resting in bed. Obtunded. VS stable with no acute distress. Breathing even and unlabored on trachea and vent with no respiratory distress. No signs and symptoms of pain. Telemonitor in place and patent reading SR with PVC and HR-99. Gtube in place and patent. 20g PIV on RFA clean, intact, patent and flushing well. Safety precautions in place. Bed locked and set to lowest position with side rails x 2 up. All needs rendered at this time. Call light within reach. Will endorse plan of care to oncoming shift.
--- NOTE | 2020-01-19 19:33 | NUR ---
NECKTIES PAINTER CLOSING NOTES PATIENT IN BED, A/O X 0 OBTUNDED. TOLERATING VENT SETTING WELL, BREATHING EVEN AND UNLABORED, NO SOB NOTED. NO SIGNS OF ACUTE DISTRESS. NO COMPLAINTS OF PAIN OR DISCOMFORT- NO FACIAL GRIMACING NOTED. TLE MONITOR READING SR 82 WITH BBB. GTUBE NOTED AND IN PLACE- NOT RUNNING ANYTHING AT THE MOMENT. IV LOCATED ON R FA #20. SAFETY PRECAUTIONS IN PLACE WITH BED IN LOWEST POSITION, CALL LIGHT WITHIN REACH, BREAKS ON, SIDE RAILS UP. WILL CONTINUE TO MONITO THROUGHOUT THE NIGHT. Addendum: 01/20/20 at 0654 by ELENA KC RN NECKTIES PAINTER OPENING NOTES
[2020-01-19 20:00] VITALS: BP 100/60
--- NOTE | 2020-01-19 20:01 | NUR ---
RT NOTES PT RECEIVED TRACHED ON [facility] VENT ON CHARTED SETTINGS. NO SIGNS OF RESP DISTRESS NOTED AT THIS TIME. AIRWAY PATENT AND SECURED. MDI TX GIVEN WITH NO ADVERSE REACTIONS NOTED. AMBUBAG AND SPARE TRACH AT BEDSIDE. VENT PLUGGED INTO TO RED OUTLET. WILL CONT TO MONITOR. Addendum: 01/19/20 at 2039 by LORRIE SALMERON RT Amended: Links added.
[2020-01-19] MEDS: CEFEPIME 1 GM in IV D5W 50 ML IV SCH (20:05)
[2020-01-20] VITALS: BP 112/61
[2020-01-20] MEDS: BLOOD SUGAR DIAGNOSTIC 1 EACH STRIP IN SCH ×5 (00:12→23:03)
[2020-01-20] MEDS: INSULIN REGULAR, HUMAN 100 UNIT/ML 3 ML VIAL SQ PRN ×4 (00:13→23:08)
[2020-01-20] MEDS: IPRATROPIUM BROMIDE 14 GM INHALER (or 12.9 GM) IH SCH ×4 (01:51→20:23)
--- NOTE | 2020-01-20 06:54 | NUR ---
ADVERTISING DISPLAY ROTATOR CLOSING NOTES PATIENT IN BED, A/O X 0 OBTUNDED. TOLERATING VENT SETTING WELL, BREATHING EVEN AND UNLABORED, NO SOB NOTED. NO SIGNS OF ACUTE DISTRESS. NO COMPLAINTS OF PAIN OR DISCOMFORT- NO FACIAL GRIMACING NOTED. TLE MONITOR READING SR 82 WITH BBB. GTUBE NOTED AND IN PLACE- NOT RUNNING ANYTHING AT THE MOMENT FEEDING DONE. IV LOCATED ON R FA #20. SAFETY PRECAUTIONS IN PLACE WITH BED IN LOWEST POSITION, CALL LIGHT WITHIN REACH, BREAKS ON, SIDE RAILS UP. PATIENT KEPT CLEAN AND DRY THROUGHOUT THE NIGHT. ALL NEEDS ATTENDED TO. WILL ENDORSE TO ONCOMING SHIFT ABOUT SHARON.
--- NOTE | 2020-01-20 07:05 | NUR ---
ms rn received on bed, non verbal patient, vent dependent, w/ g tube feeding running at 50ml per hour, continuous, will monitor patient.
[2020-01-20 08:00] VITALS: BP 109/68
[2020-01-20] MEDS: POLYVINYL ALCOHOL 15 ML BOTTLE EACHEYE SCH ×2 (09:00→17:00)
[2020-01-20] MEDS: INSULIN GLARGINE, 100 UNIT/ML CARTRIDGE SQ SCH ×2 (09:00→23:00)
--- NOTE | 2020-01-20 10:00 | NUR ---
ms rn due meds given,tolerted well.
[2020-01-20] MEDS: LACTOBACILLUS RHAMNOSUS GG 1 EACH CAP.SPRINK GT SCH ×2 (10:41→21:44)
[2020-01-20] MEDS: DOCUSATE SODIUM LIQ 100 MG/10 ML UDC GT SCH ×2 (10:41→21:44)
[2020-01-20] MEDS: FERROUS SULFATE UDC 300 MG/5 ML UDC GT SCH (10:41)
[2020-01-20] MEDS: FAMOTIDINE (20 MG) 20 MG TABLET GT SCH (10:41)
[2020-01-20] MEDS: K PHOS NEUTRAL 250 MG TABLET GT SCH (10:41)
[2020-01-20] MEDS: Z GUARD REMEDY 2 OZ OINT TP SCH (14:44)
[2020-01-20 16:00] VITALS: BP 140/75
[2020-01-20 16:24] LABS: HEMOGLOBIN 7.6 g/dL (13.5-17.5)
--- NOTE | 2020-01-20 18:00 | NUR ---
ms verduzco bs- 147-2 units given.
[2020-01-20] MEDS: NEPRO 1,000 ML BOTTLE GT PRN (18:38)
--- NOTE | 2020-01-20 19:10 | NUR ---
CONVERTIBLE POWER SHOVEL OPERATOR NOTES RECEIVED PT BED RESTING. PT A/O X 0 OBTUNDED AND OPENS EYES. TOLERATING VENT SETTING WELL, BREATHING EVEN AND UNLABORED, NO SOB NOTED. NO S/S OF PAIN AT THIS TIME. PT NOTED WITH GTUBE NOTED INFUSING AND TOLERATING WELL. IV LOCATED ON R FA #[address] SL[address] SAFETY MEASURES IN PLACE WITH BED IN LOWEST POSITION, CALL LIGHT WITHIN REACH, WITH SIDE RAILS UP X2. CALL LIGHT WITHIN REACH. WILL CONTINUE TO MONITOR.
--- NOTE | 2020-01-20 19:17 | NUR ---
ms rn on bed, no distress noted.
[2020-01-20 20:00] VITALS: BP 106/62
[2020-01-21] VITALS: BP 107/70
[2020-01-21] MEDS: IPRATROPIUM BROMIDE 14 GM INHALER (or 12.9 GM) IH SCH ×4 (02:20→20:08)
[2020-01-21 04:00] VITALS: BP 120/77
[2020-01-21] MEDS: INSULIN REGULAR, HUMAN 100 UNIT/ML 3 ML VIAL SQ PRN ×3 (06:48→17:55)
[2020-01-21] MEDS: BLOOD SUGAR DIAGNOSTIC 1 EACH STRIP IN SCH ×3 (06:48→17:54)
--- NOTE | 2020-01-21 07:39 | NUR ---
FREIGHT CLAIM INVESTIGATOR NOTES RECEIVED PT BED RESTING. PT A/O X 0 OBTUNDED AND OPENS EYES. TOLERATING VENT SETTING WELL, BREATHING EVEN AND UNLABORED, NO SOB NOTED THROUGHOUT SHIFT. PT KEPT CLEAN, DRY, AND COMFORTABLE. NO S/S OF PAIN AT THIS TIME. PT NOTED WITH GTUBE NOTED INFUSING AND TOLERATING WELL. IV LOCATED ON R FA #20 SL. SAFETY MEASURES IN PLACE WITH BED IN LOWEST POSITION, CALL LIGHT WITHIN REACH, WITH SIDE RAILS UP X2. CALL LIGHT WITHIN REACH. WILL ENDORSE TO ONCOMING NURSE FOR SHARON.
--- NOTE | 2020-01-21 07:45 | NUR ---
MS/RN Opening note Patient received from shift superintendent. Obtunded, trach to vent, saturation 100%. -Shiley XL -SIMV 12 -TV 500 -Peep 5 GT feeding infusing @45ml/hr, no residual, appears to be tolerating well. Heplock to right forearm flushing well with normal saline, no infiltration noted. Appears comfortable, in no distress, will continue to monitor and ensure safety.
[2020-01-21 08:00] VITALS: BP 126/63
--- NOTE | 2020-01-21 08:00 | NUR ---
MS/RN Turning and repositioning Patient will be turned and repositioned every two to three hours or as condition allows. See HEALTHCARE ECONOMICS CONSULTANT flow sheet for position.
[2020-01-21] MEDS: DOCUSATE SODIUM LIQ 100 MG/10 ML UDC GT SCH ×2 (08:19→21:22)
[2020-01-21] MEDS: FERROUS SULFATE UDC 300 MG/5 ML UDC GT SCH (08:19)
[2020-01-21] MEDS: INSULIN GLARGINE, 100 UNIT/ML CARTRIDGE SQ SCH ×2 (08:23→21:39)
[2020-01-21] MEDS: FAMOTIDINE (20 MG) 20 MG TABLET GT SCH (08:24)
[2020-01-21] MEDS: LACTOBACILLUS RHAMNOSUS GG 1 EACH CAP.SPRINK GT SCH ×2 (08:24→21:22)
[2020-01-21] MEDS: K PHOS NEUTRAL 250 MG TABLET GT SCH (08:25)
[2020-01-21] MEDS: POLYVINYL ALCOHOL 15 ML BOTTLE EACHEYE SCH ×2 (08:25→17:53)
[2020-01-21] MEDS: Z GUARD REMEDY 2 OZ OINT TP SCH (08:32)
[2020-01-21] MEDS: MIDODRINE HCL (5MG) 5 MG TABLET GT SCH (09:03)
[2020-01-21] MEDS: EPOETIN ALFA (10,000 UNIT) 10,000 UNIT/ML VIAL SQ SCH (13:03)
--- NOTE | 2020-01-21 13:04 | NUR ---
MS/RN Epogen Epogen administered as ordered. Hb 7.6
[2020-01-21 16:00] VITALS: BP 137/85
[2020-01-21] MEDS ORDERED: HEPARIN-LOCK FLUSH PORCINE PF 100 UNITS/1 ML (10 ML)DISP.SYRIN IVF ONE (18:00)
--- NOTE | 2020-01-21 19:00 | NUR ---
MS/RN End note Call received from Dr Wood to gather supplies and obtain consnet for quinntin catheter placement. Brther called and consent given, consent form completed and witnessed by second RN. Supplies rathered and placed in bag in room. Heparin to be removed from pyxis when procedure will take place. Central supply called for rancho cath 16 curved. Per CS, this catheter is not kept in stock and will need to be ordered and will not arrive until Sunday or Sunday. Central supply will call [facility] in morning to enquire if they have this catheter in stock. Will endores to warehouse worker 2nd shift.
--- NOTE | 2020-01-21 19:30 | NUR ---
Tele Surgical Technologist initial notes received patient in bed on Mechanical ventilator with ff set up , Shiley XL #6, TV 500, FIo2 40% , PEEP 5 and AC 14. pt also on G-TUBE feeding Nephro at 45ml/hr and pt tolerated well. No signs of any acute distress noted. Heplock on left Forearm patent and intact. Sinus Rhythm on tele monitor. Vital signs within normal limit. kept him warm and comfortable at all times. will continue monitoring.
[2020-01-21 20:00] VITALS: BP 141/84
[2020-01-21] MEDS: NEPRO 1,000 ML BOTTLE GT PRN (20:38)
--- NOTE | 2020-01-21 22:00 | NUR ---
tele executive community planning notes blood sugar checked done 196, 13 units of Lantus given jessenia SQ as ordered. G-tube feeding tolerated well. no aspiration noted. will continue monitoring.
[2020-01-22] VITALS: BP 147/92
--- NOTE | 2020-01-22 | NUR ---
tele alum operator notes blood sugar re- checked 201 , 4 units of insulin given jessenia SQ as ordered. no signs of hyper Glycemia noted. Sinus Rhythm per monitor. will continue monitoring.
[2020-01-22] MEDS: BLOOD SUGAR DIAGNOSTIC 1 EACH STRIP IN SCH ×5 (00:21→23:48)
[2020-01-22] MEDS: INSULIN REGULAR, HUMAN 100 UNIT/ML 3 ML VIAL SQ PRN ×5 (00:27→23:50)
[2020-01-22] MEDS: IPRATROPIUM BROMIDE 14 GM INHALER (or 12.9 GM) IH PRN ×3 (01:43→13:05)
[2020-01-22] MEDS: IPRATROPIUM BROMIDE 14 GM INHALER (or 12.9 GM) IH SCH ×3 (01:46→20:47)
[2020-01-22 04:00] VITALS: BP 147/80
--- NOTE | 2020-01-22 07:11 | NUR ---
TELE MICROBIOLOGY TECHNICIAN CLOSING NOTES BLOOD SUGAR 160, 2 UNITS OF INSULIN GIVEN COBY SQ ORDERED. PT STILL ON G-TUBE FEEDING AND PT TOLERATED WELL, NO ASPIRATION NOTED. PT STABLE COBY THE NIGHT . TELE SINUS RHYTHM PER MONITOR. KEPT HIM WARM AND COMFORTABLE AT ALL TIMES. ON SEMI FOWLERS POSITION WITH SIDE RAILS X2 UP AND BED IN LOW AND LOCK IN POSITION. WILL ENDORSE TO AM NURSE FOR CONTINUITY OF CARE.
--- NOTE | 2020-01-22 07:20 | NUR ---
msrn received a non verbal patient ,vent dependent patient, not in any form of distress, respirations even and unlabored,no sob noted, g tube in trach w/ feeding on,tolerated well w/o residual.will monitor patient.
[2020-01-22 08:00] VITALS: BP 152/95
[2020-01-22] MEDS: FAMOTIDINE (20 MG) 20 MG TABLET GT SCH (09:59)
[2020-01-22] MEDS: DOCUSATE SODIUM LIQ 100 MG/10 ML UDC GT SCH ×2 (09:59→21:24)
[2020-01-22] MEDS: LACTOBACILLUS RHAMNOSUS GG 1 EACH CAP.SPRINK GT SCH ×2 (09:59→21:24)
[2020-01-22] MEDS: FERROUS SULFATE UDC 300 MG/5 ML UDC GT SCH (09:59)
[2020-01-22] MEDS: K PHOS NEUTRAL 250 MG TABLET GT SCH (09:59)
--- NOTE | 2020-01-22 10:05 | NUR ---
ms luba due meds given via g tube,tolerated well.
[2020-01-22] MEDS: INSULIN GLARGINE, 100 UNIT/ML CARTRIDGE SQ SCH ×2 (10:26→21:38)
[2020-01-22] MEDS: Z GUARD REMEDY 2 OZ OINT TP SCH (11:12)
[2020-01-22] MEDS: POLYVINYL ALCOHOL 15 ML BOTTLE EACHEYE SCH ×2 (11:13→17:00)
--- NOTE | 2020-01-22 11:30 | NUR ---
ms rn report given to steve for continuity of care.
--- NOTE | 2020-01-22 12:06 | NUR ---
MS/RN Patient received Patient received from Rhea VELEZ. Appears comfortable, in no distress at this time. GT feeding recommenced after being on hold from medication administration. Blood sugar 155, insulin to be given as per sliding scale. Will continue to monitor and ensure safety.
[2020-01-22 12:44] LABS: FERRITIN 2000 ng/mL (8-388)
[2020-01-22 13:17] LABS: IRON, SERUM 93 ug/dl (50-175); TOTAL IRON BINDING CAPACITY 267 ug/dl (250-450)
[2020-01-22 14:00] LABS: ALANINE AMINOTRANSFERASE 32 U/L (12-78); ALBUMIN 2.9 g/dL (3.4-5.0); ALKALINE PHOSPHATASE 223 U/L (46-116); ASPARTATE AMINOTRANSFERASE 26 U/L (15-37); BILIRUBIN,TOTAL 0.3 mg/dL (0.2-1.0); CARBON DIOXIDE 15 mmol/L (21-32); CHLORIDE 95 mmol/L (98-107); GLUCOSE 185 mg/dL (74-106); POTASSIUM 5.1 mmol/L (3.5-5.1); SODIUM SERUM 137 mmol/L (136-145); TOTAL PROTEIN, SERUM 7.9 g/dL (6.4-8.2)
--- NOTE | 2020-01-22 15:30 | NUR ---
MS/RN S/B Dr Wood Seen by Dr Wood - rancho catheter to be inserted tomorroe, supplies at bedside.
[2020-01-22 16:01] VITALS: BP 114/67
--- NOTE | 2020-01-22 16:57 | NUR ---
MS/RN Blood sugar Blood sugar at 5p - 165, insulin coverage as per sliding scale.
--- NOTE | 2020-01-22 17:37 | NUR ---
RT NOTE PATIENT FOUND ON MECHANICAL VENT WITH ORDERED SETTINGS, TOLERATING WELL. ALARMS ON AND AUDIBLE. VENT PLUGGED IN TO THE RED OUTLET. TRACH TUBE IN PLACE, PATENT, AND SECURED WITH TRACH TIE. AMBU BAG AND BACK UP TRACH BY THE BEDSIDE. NO DISTRESS AT THIS TIME. MONITOR THROUGHOUT SHIFT.
--- NOTE | 2020-01-22 18:43 | NUR ---
MS/RN End note Stable on vent, all setting remain unchanged. Has been turned and repositioned every 2-3 hours to prevent skin breakdown, see ASSOCIATE WEB DEVELOPER flow sheet for position. Tolerating tube feedings, no residual noted. Medications adminstered as ordered. Will endorse to svp monetization.
--- NOTE | 2020-01-22 19:46 | NUR ---
ADMINISTRATION CLERK OPENING NOTES PATIENT RECEIVED RESTING IN BED A/O X 0 OBTUNDED. ON VENTILATOR- TOLERATING SETTINGS WELL WITH BREATHING EVEN AND UNLABORED. NO SIGNS OF ACUTE DISTRESS- NO COMPLAINTS OF PAIN OR DISCOMFORT. TELE MONITOR READING NSR. GTUBE FEEDING NEPHRO @ 45 ML/HR. IV LOCATED ON RFA #[address] SL. SAFETY PRECAUTIONS IN PLACE WITH BED IN LOWEST POSITION, CALL LIGHT WITHIN REACH, BREAKS ON, SIDE RAILS UP. WILL CONTINUE TO MONITOR THROUGHOUT THE SHIFT.
[2020-01-22 20:00] VITALS: BP 140/98
--- NOTE | 2020-01-22 20:49 | NUR ---
RT NOTE PT RECEIVED TRACHED ON MECHANICAL VENTILATION. AMBU BAG @ BEDSIDE. SX DONE, TRACH SECURED AND PATENT. ALARMS ON AND AUDIBLE. NO DISTRESS NOTED. CONT. PULSE OX CONNECTED. WILL MONITOR T/O SHIFT. Addendum: 01/22/20 at 2048 by MIRIAN PIERCE RT Amended: Links added.
[2020-01-23] VITALS: BP 154/97
[2020-01-23] MEDS: IPRATROPIUM BROMIDE 14 GM INHALER (or 12.9 GM) IH SCH ×4 (00:25→19:55)
[2020-01-23] MEDS: NEPRO 1,000 ML BOTTLE GT PRN (00:33)
[2020-01-23 04:00] VITALS: BP 152/86
[2020-01-23] MEDS: INSULIN REGULAR, HUMAN 100 UNIT/ML 3 ML VIAL SQ PRN ×3 (06:00→18:22)
[2020-01-23] MEDS: BLOOD SUGAR DIAGNOSTIC 1 EACH STRIP IN SCH ×4 (06:01→23:26)
--- NOTE | 2020-01-23 06:51 | NUR ---
SHOE CUTTER CLOSING NOTES PATIENT RECEIVED RESTING IN BED A/O X 0 OBTUNDED. ON VENTILATOR- TOLERATING SETTINGS WELL WITH BREATHING EVEN AND UNLABORED. NO SIGNS OF ACUTE DISTRESS- NO COMPLAINTS OF PAIN OR DISCOMFORT. TELE MONITOR READING NSR. GTUBE FEEDING NEPHRO @ 45 ML/HR. IV LOCATED ON RFA #20 SL. SAFETY PRECAUTIONS IN PLACE WITH BED IN LOWEST POSITION, CALL LIGHT WITHIN REACH, BREAKS ON, SIDE RAILS UP. ALL NEEDS ATTENDED TO. PATIENT KEPT CLEAN AND DRY THROUGHOUT THE NIGHT. WILL ENDORSE TO ONCOMING SHIFT ABOUT SHARON.
[2020-01-23 08:00] VITALS: BP 152/89
--- NOTE | 2020-01-23 08:00 | NUR ---
LAWN MOWER REPAIRER OPENING NOTES PATIENT RECEIVED RESTING IN BED A/O X 0 OBTUNDED. ON VENTILATOR- TOLERATING SETTINGS WELL WITH BREATHING EVEN AND UNLABORED. NO SIGNS OF ACUTE DISTRESS- NO COMPLAINTS OF PAIN OR DISCOMFORT. TELE MONITOR READING NSR. GTUBE FEEDING NEPHRO @ 45 ML/HR TOLERATING WELL.HOB ELEVATED. IV LOCATED ON RFA #20 SL.FOR ESTEBAN CATH PLACEMENT TODAY BY DR ANNEL AYERS WITH SUPPLIES AT THE BEDSIDE. SAFETY PRECAUTIONS IN PLACE WITH BED IN LOWEST POSITION, CALL LIGHT WITHIN REACH, BREAKS ON, SIDE RAILS UP. NEEDS ATTENDED. TURNED EVERY TWO HRS. SUCTIONED SECRETIONS PRN.PATIENT KEPT CLEAN AND DRY
[2020-01-23] MEDS: FERROUS SULFATE UDC 300 MG/5 ML UDC GT SCH (09:31)
[2020-01-23] MEDS: LACTOBACILLUS RHAMNOSUS GG 1 EACH CAP.SPRINK GT SCH (09:31)
[2020-01-23] MEDS: DOCUSATE SODIUM LIQ 100 MG/10 ML UDC GT SCH (09:32)
[2020-01-23] MEDS: K PHOS NEUTRAL 250 MG TABLET GT SCH (09:32)
[2020-01-23] MEDS: MIDODRINE HCL (5MG) 5 MG TABLET GT SCH (09:32)
[2020-01-23] MEDS: FAMOTIDINE (20 MG) 20 MG TABLET GT SCH (09:32)
[2020-01-23] MEDS: Z GUARD REMEDY 2 OZ OINT TP SCH (09:34)
[2020-01-23] MEDS: POLYVINYL ALCOHOL 15 ML BOTTLE EACHEYE SCH ×2 (09:36→18:23)
[2020-01-23] MEDS: INSULIN GLARGINE, 100 UNIT/ML CARTRIDGE SQ SCH ×2 (09:46→22:00)
--- NOTE | 2020-01-23 10:00 | NUR ---
STARTED ESTEBAN CATH PLACEMENT BY DR ANNEL Gore AND NEHEMIAH COFFEY AT THE BEDSIDE WITH SUPPLIES AT THE BEDSIDE.
--- NOTE | 2020-01-23 11:15 | NUR ---
COMPLETED ESTEBAN CATH PLACEMENT PROCEDURE AND STAT CXR ORDERED.KEPT PT CLEAN DRY.
[2020-01-23 16:00] VITALS: BP 148/86
--- NOTE | 2020-01-23 19:10 | NUR ---
ammonia technician opening notes Received Pt from morning nurse. Pt is resting in bed comfortably. Pt is alert and orientedX0 and obtunded. Respiration is normal in [facility]. ventilator. O2 sat is 100%. No SOB. No S/S of distress noted. Tele monitor showed SR HR at 78 bpm. Pt will have dialysis tonight per am nurse. R groin Negro cath is clean, intact and patent. IV sites RFA# 20 is clean, intact and patent, SL. Gtube feeding is running nephro @ 45 ml/hr with 0 residual. Suctioned as PRN. Turning and repositioning Q 2hr. Safety precautions is maintained. Bed at low position, brakes locked, side rails upX2, HOB elevated and call light is within reach. Will continue to monitor.
[2020-01-23 20:00] VITALS: BP 165/99
[2020-01-23 20:50] VITALS: BP 165/99
--- NOTE | 2020-01-23 21:00 | NUR ---
wearing apparel assembler notes Pt is having a dialysis with ROSIE Wilkerson.
--- NOTE | 2020-01-23 23:27 | NUR ---
lead software tester notes Pt's blood sugar is 114. Held lantus 13 units. Will continue to monitor.
[2020-01-24] VITALS: BP 128/86
--- NOTE | 2020-01-24 00:03 | NUR ---
varnisher notes Pt is done with dialysis. Output 2 L. Pt tolerated well. BP 128/86. pulse 89. temp 98.4. respiration is 20.
[2020-01-24] MEDS: DOCUSATE SODIUM LIQ 100 MG/10 ML UDC GT SCH ×3 (00:17→21:21)
[2020-01-24] MEDS: LACTOBACILLUS RHAMNOSUS GG 1 EACH CAP.SPRINK GT SCH ×3 (00:18→21:21)
[2020-01-24 00:20] VITALS: BP 128/86
--- NOTE | 2020-01-24 01:20 | NUR ---
bailer operators supervisor notes Pt's IV sites at RFA# 20 is leaking. Inserted new IV sites at R upperarm # 22 with good blood returned, clean, intact and flush without resistance. Pt tolerated activity well. Will continue to monitor.
[2020-01-24] MEDS: IPRATROPIUM BROMIDE 14 GM INHALER (or 12.9 GM) IH SCH ×4 (01:47→20:28)
[2020-01-24 04:00] VITALS: BP 150/90
[2020-01-24] MEDS: BLOOD SUGAR DIAGNOSTIC 1 EACH STRIP IN SCH ×3 (05:08→17:51)
[2020-01-24] MEDS: INSULIN REGULAR, HUMAN 100 UNIT/ML 3 ML VIAL SQ PRN ×3 (05:09→17:46)
--- NOTE | 2020-01-24 05:09 | NUR ---
drop wire hanger notes Pt's blood sugar is 126 per sliding scale. No insulin coverage is given. Will continue to monitor.
[2020-01-24] MEDS: NEPRO 1,000 ML BOTTLE GT PRN (05:10)
--- NOTE | 2020-01-24 07:00 | NUR ---
raw hide trimmer notes Pt's having dialysis.
--- NOTE | 2020-01-24 07:05 | NUR ---
sheet manufacturing supervisor closing notes Pt is resting in bed comfortably. Pt is alert and orientedX0 and obtunded and stable condition. Respiration is normal in [facility]. ventilator. O2 sat is 100%. No SOB. No S/S of distress noted. Tele monitor showed SR HR at 89 bpm. R groin Negro cath is clean, intact and patent. IV sites R upperarm# 22 is clean, intact and patent, SL. Gtube feeding is running nephro @ 45 ml/hr. Suctioned as needed. Kept Pt clean, dry and comfortable. Turned and repositioned Q 2hr. Safety precautions is maintained. Bed at low position, brakes locked, side rails upX2, HOB elevated and call light is within reach. Will endorse to morning nurse for SHARON.
[2020-01-24 08:00] VITALS: BP 105/58
--- NOTE | 2020-01-24 08:00 | NUR ---
received pt. this am on tele,hob elevated,on vent with settings unchanged.rn in rm. often,litlle sputum removed with tracheal suctioning mostly in mouth with oralia.
[2020-01-24 08:41] LABS: CREATININE 5.4 mg/dL (0.6-1.3); MAGNESIUM 2.6 mg/dL (1.8-2.4); POTASSIUM 3.7 mmol/L (3.5-5.1)
--- NOTE | 2020-01-24 09:21 | NUR ---
INFORMATION SENT:FACESHEET, PROGRESS NOTES 01/22, 24HRS REPORT,UR 01/22. [phone] BY KEL
[2020-01-24] MEDS: INSULIN GLARGINE, 100 UNIT/ML CARTRIDGE SQ SCH ×2 (10:01→22:10)
[2020-01-24] MEDS: FAMOTIDINE (20 MG) 20 MG TABLET GT SCH (10:03)
[2020-01-24] MEDS: K PHOS NEUTRAL 250 MG TABLET GT SCH (10:03)
[2020-01-24] MEDS: FERROUS SULFATE UDC 300 MG/5 ML UDC GT SCH (10:03)
[2020-01-24] MEDS: POLYVINYL ALCOHOL 15 ML BOTTLE EACHEYE SCH ×2 (10:40→17:49)
[2020-01-24] MEDS: Z GUARD REMEDY 2 OZ OINT TP SCH (10:41)
[2020-01-24] MEDS ORDERED: VANCOMYCIN 1 GM in IV D5W 250ml IV ONE (12:00)
[2020-01-24] MEDS: IPRATROPIUM BROMIDE 14 GM INHALER (or 12.9 GM) IH PRN ×2 (13:36→13:37)
[2020-01-24 16:00] VITALS: BP 140/88
--- NOTE | 2020-01-24 18:30 | NUR ---
noted sm. amt. reddish drainage on trach tie at back of neck.teresita.rn to follow up.had lrg. liq. stool.
[2020-01-24 20:00] VITALS: BP 123/82
--- NOTE | 2020-01-24 20:00 | NUR ---
NURSING TECHNICIAN NOTES RECEIVED ON BED OBTUNDED,ON TRACH TO VENT,SETTINGS TOLERATED WELL.GT FEEDING OF NEPRO AT 45ML/HR RATE IN PROGRESS VIA FEEDING PUMP,NO RESIDUAL VOLUME NOTED.DUE MEDS ADMINISTERED ORDERED.REPOSITIONED PER PROTOCOL.MARTINEZ CATH IN PLACE DRAINING YELLOWISH OUTPUT.WILL CONTINUE TO MONITOR STATUS.
--- NOTE | 2020-01-24 22:00 | NUR ---
DISPLAY DESIGNER NOTES BLOOD SUGAR CHECK 171,DUE LANTUS 13 UNITS Q HS ADMINISTERED,GT FEEDING INFUSING.
[2020-01-25] VITALS: BP 128/86
--- NOTE | 2020-01-25 | NUR ---
PROBLEM MANAGER NOTES ACCU-CHECK BLOOD SUGAR CHECK 182,COVERED WITH HUMULIN R 3 UNITS PER SLIDING SCALE.
[2020-01-25] MEDS: BLOOD SUGAR DIAGNOSTIC 1 EACH STRIP IN SCH ×4 (00:02→17:30)
[2020-01-25] MEDS: INSULIN REGULAR, HUMAN 100 UNIT/ML 3 ML VIAL SQ PRN ×4 (00:03→17:30)
[2020-01-25 00:29] VITALS: BP 128/86
[2020-01-25] MEDS: IPRATROPIUM BROMIDE 14 GM INHALER (or 12.9 GM) IH SCH ×4 (01:51→18:23)
[2020-01-25 04:00] VITALS: BP 125/86
--- NOTE | 2020-01-25 05:30 | NUR ---
MANAGER FINE DINING NOTES ACCU-CHECK BLOOD SUGAR CHECK 172,COVERED WITH HUMULIN R 3 UNITS PER SLIDING SCALE.GT FEEDING PROGRESS.
--- NOTE | 2020-01-25 06:30 | NUR ---
STATE SUPERINTENDENT OF SCHOOLS NOTES NO SIGNIFICANT CHANGE IN STATUS.GT FEEDING TOLERATED WELL.NO N/V/D/ NOTED.REPOSITION PER PROTOCOL.VITAL SIGNS STABLE.WILL ENDORSE TO DAY NURSE FOR SHARON.
[2020-01-25] MEDS: NEPRO 1,000 ML BOTTLE GT PRN (06:42)
--- NOTE | 2020-01-25 07:40 | NUR ---
BREAK OUT MAN OPENING NOTES RECEIVED PT IN BED, ASLEEP, OBTUNDED BUT OPENS EYES. PT TOLERATING CURRENT VENT SETTING, WITH NO ACUTE RESPIRATORY DISTRESS NOTED. ON TELEMONITORING SR HR 97. PT NOT EXHIBITING ANY PAIN OR DISCOMFORT AT THIS TIME. OWEN G22, FLUSHED WITH NS INTACT AND OPERATIONAL. RIGHT GROIN ESTEBAN CATH PRESENT WELL FOR HD ACCESS. PT KEPT COMFORTABLE AT THIS TIME. CALL LIGHT KEPT WITHIN REACH. PT'S BED IN LOWEST, LOCKED POSITION WITH SRX3. HOB ELEVATED. WILL CONTINUE PLAN OF CARE.
[2020-01-25 08:00] VITALS: BP 138/86
[2020-01-25] MEDS: INSULIN GLARGINE, 100 UNIT/ML CARTRIDGE SQ SCH ×2 (08:55→22:39)
[2020-01-25] MEDS: LACTOBACILLUS RHAMNOSUS GG 1 EACH CAP.SPRINK GT SCH ×2 (08:56→22:22)
[2020-01-25] MEDS: DOCUSATE SODIUM LIQ 100 MG/10 ML UDC GT SCH ×2 (08:56→22:22)
[2020-01-25] MEDS: FERROUS SULFATE UDC 300 MG/5 ML UDC GT SCH (08:56)
[2020-01-25] MEDS: FAMOTIDINE (20 MG) 20 MG TABLET GT SCH (08:57)
[2020-01-25] MEDS: K PHOS NEUTRAL 250 MG TABLET GT SCH (08:57)
[2020-01-25] MEDS: Z GUARD REMEDY 2 OZ OINT TP SCH (08:57)
[2020-01-25] MEDS: POLYVINYL ALCOHOL 15 ML BOTTLE EACHEYE SCH ×2 (08:57→17:13)
--- NOTE | 2020-01-25 16:50 | NUR ---
INSURANCE AGENTS SUPERVISOR NOTES PT JUST HAD HD, TOTAL OF 2L. VITALS STABLE AT THIS TIME. WILL CONTINUE TO MONITOR.
--- NOTE | 2020-01-25 17:09 | NUR ---
EXCEPTIONAL CHILDREN'S TEACHER NOTES RECEIVED CALL FROM PHARMACY. IV VANCO NOT TO ADMINISTER. VANCO TROUGH HIGH AT 24. WILL CONTINUE TO MONITOR.
--- NOTE | 2020-01-25 18:37 | NUR ---
HATCHERY MAN CLOSING NOTES PT REMAINS IN BED, ASLEEP, OBTUNDED BUT OPENS EYES. PT TOLERATING CURRENT VENT SETTING, WITH NO ACUTE RESPIRATORY DISTRESS NOTED. ON TELEMONITORING SR WITH BBB HR 99. PT NOT EXHIBITING ANY PAIN OR DISCOMFORT AT THIS TIME. OWEN G22, FLUSHED WITH NS INTACT AND OPERATIONAL. RIGHT GROIN ESTEBAN CATH PRESENTFOR HD ACCESS. PT KEPT COMFORTABLE AT THIS TIME. ALL NEEDS AND CARE ATTENDED AND PROVIDED. CALL LIGHT KEPT WITHIN REACH. PT'S BED IN LOWEST, LOCKED POSITION WITH SRX3. HOB ELEVATED. WILL ENDORSE TO INCOMING NIGHT NURSE FOR SHRAON.
--- NOTE | 2020-01-25 19:44 | NUR ---
DIGESTER HAND OPENING NOTES PATIENT IN BED, OBTUNDED WITH EYES OPEN. NO S/S OF ACUTE RESPIRATORY DISTRESS OR PAIN NOTED. TOLERATING VENT SETTINGS WELL, SPO2 100%. TELE MONITOR READING SR WITH HEART RATE OF 96. IV PRESENT ON RIGHT UPPER ARM, SIZE 22, INTACT & PATENT, HEP LOCKED. ESTEBAN HD CATH PRESENT ON RIGHT GROIN, INTACT & PATENT. SAFETY MEASURES IN PLACE AND PATIENT'S NEEDS MET. BED LOCKED, ALARM ON, HOB ELEVATED, SIDE RAILS X3, CALL LIGHT WITHIN REACH. WILL CONTINUE TO MONITOR.
[2020-01-25 20:00] VITALS: BP 143/84
[2020-01-26] VITALS: BP 127/82
[2020-01-26] MEDS: BLOOD SUGAR DIAGNOSTIC 1 EACH STRIP IN SCH ×4 (00:07→17:00)
[2020-01-26] MEDS: INSULIN REGULAR, HUMAN 100 UNIT/ML 3 ML VIAL SQ PRN ×5 (00:41→22:19)
[2020-01-26] MEDS: IPRATROPIUM BROMIDE 14 GM INHALER (or 12.9 GM) IH SCH ×4 (01:31→19:56)
[2020-01-26 04:38] VITALS: BP 140/82
[2020-01-26] MEDS: NEPRO 1,000 ML BOTTLE GT PRN (06:15)
--- NOTE | 2020-01-26 07:30 | NUR ---
MOTION PICTURE CAMERA OPERATOR OPENING NOTES RECEIVED PT IN BED, ASLEEP, OBTUNDED BUT OPENS EYES. PT TOLERATING CURRENT VENT SETTING, WITH NO ACUTE RESPIRATORY DISTRESS NOTED. ON TELEMONITORING SR WITH BBB, HR 98. PT NOT EXHIBITING ANY PAIN OR DISCOMFORT AT THIS TIME. OWEN G22, FLUSHED WITH NS INTACT AND OPERATIONAL. RIGHT GROIN ESTEBAN CATH PRESENT WELL FOR HD ACCESS. PT KEPT COMFORTABLE AT THIS TIME. CALL LIGHT KEPT WITHIN REACH. PT'S BED IN LOWEST, LOCKED POSITION WITH SRX3. HOB ELEVATED. WILL CONTINUE PLAN OF CARE.
--- NOTE | 2020-01-26 07:55 | NUR ---
WELDER PRODUCTION LINE COMBINATION CLOSING NOTES PATIENT IN BED, OBTUNDED WITH EYES OPEN. NO S/S OF ACUTE RESPIRATORY DISTRESS OR PAIN NOTED. TOLERATING VENT SETTINGS WELL, SPO2 100%. TELE MONITOR READING SR WITH HEART RATE OF 98. IV PRESENT ON RIGHT UPPER ARM, SIZE 22, INTACT & PATENT, HEP LOCKED. ESTEBAN HD CATH PRESENT ON RIGHT GROIN, INTACT & PATENT. SAFETY MEASURES IN PLACE AND PATIENT'S NEEDS MET. BED LOCKED, ALARM ON, HOB ELEVATED, SIDE RAILS X3, CALL LIGHT WITHIN REACH. WILL ENDORSE TO DAY SHIFT NURSE PLAN OF CARE.
[2020-01-26 08:00] VITALS: BP 143/99
[2020-01-26 08:18] LABS: CALCIUM, SERUM 9.3 mg/dL (8.5-10.1); CREATININE 5.5 mg/dL (0.6-1.3); POTASSIUM 3.7 mmol/L (3.5-5.1)
[2020-01-26] MEDS: INSULIN GLARGINE, 100 UNIT/ML CARTRIDGE SQ SCH ×2 (08:50→22:12)
[2020-01-26] MEDS: FERROUS SULFATE UDC 300 MG/5 ML UDC GT SCH (08:51)
[2020-01-26] MEDS: DOCUSATE SODIUM LIQ 100 MG/10 ML UDC GT SCH ×2 (08:51→20:02)
[2020-01-26] MEDS: LACTOBACILLUS RHAMNOSUS GG 1 EACH CAP.SPRINK GT SCH ×2 (08:52→20:02)
[2020-01-26] MEDS: FAMOTIDINE (20 MG) 20 MG TABLET GT SCH (08:52)
[2020-01-26] MEDS: K PHOS NEUTRAL 250 MG TABLET GT SCH (08:52)
[2020-01-26] MEDS: MIDODRINE HCL (5MG) 5 MG TABLET GT SCH (08:53)
[2020-01-26] MEDS: Z GUARD REMEDY 2 OZ OINT TP SCH (08:53)
[2020-01-26] MEDS: POLYVINYL ALCOHOL 15 ML BOTTLE EACHEYE SCH ×2 (09:06→16:55)
[2020-01-26 16:00] VITALS: BP 152/100
--- NOTE | 2020-01-26 18:34 | NUR ---
DIRECTOR OF WORKFORCE DEVELOPMENT CLOSING NOTES PT REMINS IN BED, ASLEEP, OBTUNDED BUT OPENS EYES. PT TOLERATING CURRENT VENT SETTING, WITH NO ACUTE RESPIRATORY DISTRESS NOTED. ON TELEMONITORING SR WITH BBB, HR 96. PT NOT EXHIBITING ANY PAIN OR DISCOMFORT AT THIS TIME. OWEN G22, FLUSHED WITH NS INTACT AND OPERATIONAL. RIGHT GROIN ESTEBAN CATH PRESENT WELL FOR HD ACCESS. PT KEPT COMFORTABLE AT THIS TIME. ALL NEEDS AND CARE ATTENDED AND PROVIDED. CALL LIGHT KEPT WITHIN REACH. PT'S BED IN LOWEST, LOCKED POSITION WITH SRX3. HOB ELEVATED. WILL ENDORSE TO INCOMING NIGHT NURSE FOR SHARON.
--- NOTE | 2020-01-26 19:17 | NUR ---
TELE/RN OPENING NOTES RECECIVED PATIENT IN BED, OPENS EYES, OBTUNDED, EXTENSIVE ASSISTANCE NEEDED PATIENT IS BED BOUND, CAN MOVE UPPER ARMS WITH SOME WEAKNESS, ON OXYGEN AT 2LITER VIA NC, PATIENT IN TELE MONITOR AT [address] UNCONTROLLED. RECEIVED ENDORSEMENT FROM AM RN PATIENT TESTED FOR COVID BUT RESULT NEGATIVE, WITH REDNESS ON SACRAL AREA MONITOIRNG FOR ANY FLUID OVER LOAD, OFFER AND PROVIDE FLUIDS, MONITOR INTAKE AND OUTPUT AND REPORT ANY CHANGES. BED LOCKED, CALL LIGHTS WITHIN REACH. WILL MONITOR. SKIN WARM TO TOUCH. KEPT COMFORTABLE. Addendum: 01/26/20 at 1922 by SUNNY LANG RN PLS DISREGARD PREVIOUS NOTES FOFR DIFFERENT PATIENT.
--- NOTE | 2020-01-26 19:22 | NUR ---
TELE/RN OPENING NOTES RECEIVED PATIENT HOB ELEVATED, ON MECHANICAL VENT, OBTUNDED BUT OPENS EYES, SKIN WARM TO TOUCH WITH PRESCRIBED SETTING. RECEIVED ENDORSEMENT FROM AM RN FOR SHAORN. ON TELE AT SR 93. INCONTINENT AND EXTENSIVE ASSISTANCE , WITH REDNESS ON SACRAL AND PERINEAL. GTUBE PATENT AND WITH NO RESIDUALS, LAST HD WAS YESTERDAY, MONITORING FOR ANY CHANGES AND REPORT TO MD , WILL MONITOR. ON PULSE OXIMETER WITH 100%. BED LOCKED. SIDE RAILS UP. WILL MONITOR,
--- NOTE | 2020-01-26 19:50 | NUR ---
TELE/RN NOTES PHARMACY VIVIAN MADE AWARE REGARDING PRESCRIBED INHALER ATROVENT NOT IN THE MED ROOM CAPTAIN WAITER. AWAITING FOR THE INH TO BE GIVEN.
[2020-01-26 19:59] VITALS: BP 127/73
[2020-01-26 20:00] VITALS: BP 127/73
--- NOTE | 2020-01-26 20:05 | NUR ---
tele/rn notes left adonis catheter is in placed.
--- NOTE | 2020-01-26 20:37 | NUR ---
TELE/RN NOTES PATIENT TURNED AND REPOSITIONED, HAD ONE PASTY STOOL, OWEN GAUGE 24 LEKING AND WAS REMOVED, CHARGE NURSE MADE AWARE THAT PATIENT IS ON VANCOMYCIN DAILY AND MAY NEED MIDLINE BE PLACED, PATIENT IS HARD STICK.
--- NOTE | 2020-01-26 22:00 | NUR ---
TELE/RN NOTES IV SITE RIGHT UPPER ARM DISLODGE/REMOVED AND WAS PULLED OUT, ATTEMPTED IV INSERTION BUT FAILED DUE TO HARD STICK MIDLINE REQUESTED AWAITING.
[2020-01-27] VITALS (7 sets, daily range): BP systolic 106–149; BP diastolic 73–100
[2020-01-27] MEDS: BLOOD SUGAR DIAGNOSTIC 1 EACH STRIP IN SCH ×4 (00:04→17:03)
[2020-01-27] MEDS: IPRATROPIUM BROMIDE 14 GM INHALER (or 12.9 GM) IH SCH ×4 (02:03→20:37)
--- NOTE | 2020-01-27 05:01 | NUR ---
BS CHECK AT 139. ON GTUBE FEEDING.
[2020-01-27] MEDS: INSULIN REGULAR, HUMAN 100 UNIT/ML 3 ML VIAL SQ PRN ×2 (05:11→17:03)
--- NOTE | 2020-01-27 06:15 | NUR ---
329-1 TELE/RN CLOSING NOTED PATIENT ABLE TO SLEEP FEW HOURS, ON MECHANICAL VENT WITH PRESCRIBED SETTING, OBSERVED AND MONITORED FOR ANY CHANGES, ATTENDED TO ALL NEEDS, SUCTION NEEDED, KEPT COMFORT, REPOSITIONED, APPLIED WOUND BARRIER TREATMENT, IV MIDLINE FOLLOW UP, UNABLE TO START IV PERIPHERAL, KEPT SKIN INTACT AND DRY. WILL ENDORSE TO AM RN FOR SHARON.
--- NOTE | 2020-01-27 07:00 | NUR ---
Patient in stable condition, no IV access
[2020-01-27 07:51] LABS: CALCIUM, SERUM 9.2 mg/dL (8.5-10.1); CREATININE 6.8 mg/dL (0.6-1.3); POTASSIUM 3.8 mmol/L (3.5-5.1)
[2020-01-27] MEDS: IPRATROPIUM BROMIDE 14 GM INHALER (or 12.9 GM) IH PRN (07:55)
[2020-01-27] MEDS: LACTOBACILLUS RHAMNOSUS GG 1 EACH CAP.SPRINK GT SCH ×2 (09:21→21:40)
[2020-01-27] MEDS: FERROUS SULFATE UDC 300 MG/5 ML UDC GT SCH (09:21)
[2020-01-27] MEDS: DOCUSATE SODIUM LIQ 100 MG/10 ML UDC GT SCH ×2 (09:21→21:40)
[2020-01-27] MEDS: POLYVINYL ALCOHOL 15 ML BOTTLE EACHEYE SCH ×2 (09:21→16:48)
[2020-01-27] MEDS: FAMOTIDINE (20 MG) 20 MG TABLET GT SCH (09:22)
[2020-01-27] MEDS: K PHOS NEUTRAL 250 MG TABLET GT SCH (09:23)
[2020-01-27] MEDS: INSULIN GLARGINE, 100 UNIT/ML CARTRIDGE SQ SCH ×2 (09:24→22:50)
[2020-01-27] MEDS: Z GUARD REMEDY 2 OZ OINT TP SCH (09:44)
--- NOTE | 2020-01-27 14:10 | NUR ---
A new IV access to the left wrist g 22, HL , flushing well
[2020-01-27] MEDS: NEPRO 1,000 ML BOTTLE GT PRN (14:42)
--- NOTE | 2020-01-27 19:32 | NUR ---
REPORT GIVEN TO LORRAINE VELEZ FOR SHARON
--- NOTE | 2020-01-27 19:55 | NUR ---
RN OPENING NOTES RECEIVED REPORT FROM [facility] ROSIE CHACON. FOUND Pt RESTING IN BED. NO S/S OF ACUTE DISTRESS OR SOB NOTED. Pt IS OBTUNDED ON VENT/TRACH. ON TELE MONITOR, WITH TELE READING SR 90s. VENT SETTINGS: AC 14, TV 500, FI02 40%, PEEP 5. Pt IS A HD Pt & IS ANURIC. GTF OF NEPRO @45ML/HR. IV ACCESS ON AND #22G, SL. SAFETY MEASURES IN PLACE. BED LOW, LOCKED, HOB ELEVATED, SIDE RAILS UP. BED ALARM ON. WILL CONTINUE TO MONITOR Pt's CONDITION AND SAFETY THROUGHOUT THE NIGHT.
--- NOTE | 2020-01-27 22:56 | NUR ---
RN NOTES BG 184. ADMINISTERED 13UN OF LANTUS PER SCHEDULE. Pt IS ON CONTINUOUS GTF. WILL RECHECK BG AT 0000.
[2020-01-28] VITALS (7 sets, daily range): BP systolic 102–192; BP diastolic 62–95
[2020-01-28] MEDS: BLOOD SUGAR DIAGNOSTIC 1 EACH STRIP IN SCH ×5 (00:49→23:52)
--- NOTE | 2020-01-28 01:15 | NUR ---
RN NOTES BG ACCUCHECK AT 0000: 184. ADMINISTERED 3UN OF REGULAR INSULIN PER SLIDING SCALE. ON CONTINUOUS GTF.
[2020-01-28] MEDS: INSULIN REGULAR, HUMAN 100 UNIT/ML 3 ML VIAL SQ PRN ×2 (01:20→12:16)
[2020-01-28] MEDS: IPRATROPIUM BROMIDE 14 GM INHALER (or 12.9 GM) IH SCH ×4 (02:30→19:30)
--- NOTE | 2020-01-28 06:40 | NUR ---
RN CLOSING NOTES NO OTHER SIGNIFICANT CHANGES IN Pt's CONDITION. ALL NEEDS MET AND ATTENDED TO. Pt RESTING COMFORTABLY IN BED. NO S/S OF ACUTE DISTRESS OR SOB NOTED DURING THE NIGHT. SAFETY MEASURES IN PLACE. WILL ENDORSE TO DAYSHIFT RN FOR Pt's SHARON.
--- NOTE | 2020-01-28 07:30 | NUR ---
MS/RN Opening note. Patient received from maintenance technician 3rd shift. Non verbal, trach to vent, no respiratory distress noted, saturation 100%. Vital signs stable, no fevers. Tele reading reading NSR with BBB, heart rate 83. Appears comfortable, will be turned and repositioned every 2-3 hours throughout shift. Safety measures in place, side rails X3 in upright position, brakes locked. Will continue to monitor and ensure safety.
[2020-01-28] MEDS: FAMOTIDINE (20 MG) 20 MG TABLET GT SCH (08:18)
[2020-01-28] MEDS: LACTOBACILLUS RHAMNOSUS GG 1 EACH CAP.SPRINK GT SCH ×2 (08:18→21:15)
[2020-01-28] MEDS: MIDODRINE HCL (5MG) 5 MG TABLET GT SCH (08:18)
[2020-01-28] MEDS: FERROUS SULFATE UDC 300 MG/5 ML UDC GT SCH (08:18)
[2020-01-28] MEDS: DOCUSATE SODIUM LIQ 100 MG/10 ML UDC GT SCH ×2 (08:18→21:15)
[2020-01-28] MEDS: K PHOS NEUTRAL 250 MG TABLET GT SCH (08:18)
[2020-01-28] MEDS: POLYVINYL ALCOHOL 15 ML BOTTLE EACHEYE SCH ×2 (08:19→17:14)
[2020-01-28] MEDS: Z GUARD REMEDY 2 OZ OINT TP SCH (08:20)
[2020-01-28] MEDS: INSULIN GLARGINE, 100 UNIT/ML CARTRIDGE SQ SCH ×2 (08:25→21:28)
[2020-01-28 08:34] LABS: CALCIUM, SERUM 10.2 mg/dL (8.5-10.1); CREATININE 6.2 mg/dL (0.6-1.3); POTASSIUM 3.8 mmol/L (3.5-5.1)
--- NOTE | 2020-01-28 08:40 | NUR ---
MS/RN Labs Morning labs reviewed: -BUN 64 -Creat 6.2
--- NOTE | 2020-01-28 09:00 | NUR ---
MS/RN Medications Morning medications administered as ordered via GT.
--- NOTE | 2020-01-28 11:34 | NUR ---
MS/RN S/B Dr Wood Seen by Dr Wood - patient to be dialyzed tomorrow and then discharged back to sub acute.
--- NOTE | 2020-01-28 11:44 | NUR ---
MS/RN Blood sugar Blood sugar at 1130 178, insulin coverage as per sliding scale.
[2020-01-28 13:23] LABS: HEMOGLOBIN 9.4 g/dL (13.5-17.5)
[2020-01-28] MEDS: EPOETIN ALFA (10,000 UNIT) 10,000 UNIT/ML VIAL SQ SCH (13:52)
--- NOTE | 2020-01-28 14:00 | NUR ---
MS/RN Epogen H&H 9.01/21, epogen administered as ordered.
--- NOTE | 2020-01-28 16:46 | NUR ---
MS/RN Blood sugar Blood sugar 70, no coverage.
--- NOTE | 2020-01-28 18:32 | NUR ---
MS/RN End note Patient remains stable on vent, no changes to settings, saturation 98%. Toleating feeding, no residual noted. For possible discharge tomorrow after dialysis. Will endorse to nightclub manager.
--- NOTE | 2020-01-28 20:00 | NUR ---
RN NOTES RECEIVED PT. AWAKE, OBTUNDED, SR ON TELE MONITOR HR-90, NOT IN DISTRESS, NO PAIN NOTED, DECLOGGED THE FEEDING, SIDERAILSUPX2, CONTINUE TO MONITOR
[2020-01-29] VITALS (7 sets, daily range): BP systolic 115–177; BP diastolic 86–104
[2020-01-29] MEDS: INSULIN REGULAR, HUMAN 100 UNIT/ML 3 ML VIAL SQ PRN ×4 (00:03→17:18)
[2020-01-29] MEDS: IPRATROPIUM BROMIDE 14 GM INHALER (or 12.9 GM) IH SCH ×4 (02:23→20:10)
[2020-01-29] MEDS: NEPRO 1,000 ML BOTTLE GT PRN (02:44)
[2020-01-29] MEDS: BLOOD SUGAR DIAGNOSTIC 1 EACH STRIP IN SCH ×3 (06:07→17:17)
--- NOTE | 2020-01-29 06:20 | NUR ---
RN NOTES MORNING CARE RENDERED, NOT IN DISTRESS, NO PAIN NOTED, G-TUBE FEEDING, PT. TOLERATING FAIRLY, SIDERAILSUPX2, PT. NEEDS ATTENDED
[2020-01-29] MEDS: IPRATROPIUM BROMIDE 14 GM INHALER (or 12.9 GM) IH PRN ×2 (07:54→07:56)
[2020-01-29] MEDS: K PHOS NEUTRAL 250 MG TABLET GT SCH (08:20)
[2020-01-29] MEDS: FERROUS SULFATE UDC 300 MG/5 ML UDC GT SCH (08:20)
[2020-01-29] MEDS: DOCUSATE SODIUM LIQ 100 MG/10 ML UDC GT SCH ×2 (08:20→21:25)
[2020-01-29] MEDS: LACTOBACILLUS RHAMNOSUS GG 1 EACH CAP.SPRINK GT SCH ×2 (08:21→21:25)
[2020-01-29] MEDS: FAMOTIDINE (20 MG) 20 MG TABLET GT SCH (08:21)
[2020-01-29] MEDS: POLYVINYL ALCOHOL 15 ML BOTTLE EACHEYE SCH ×2 (08:23→17:17)
[2020-01-29] MEDS: INSULIN GLARGINE, 100 UNIT/ML CARTRIDGE SQ SCH ×2 (08:25→22:07)
[2020-01-29] MEDS: Z GUARD REMEDY 2 OZ OINT TP SCH (08:25)
--- NOTE | 2020-01-29 08:54 | NUR ---
RN OPENING NOTE Patient is resting in bed, obtunded, showing no signs of acute distress or SOB, saturating 100% on mechanical vent Shiley #6 PEEP 5 AC 14 FiO2 40%. Tele monitor SR with BBB. G-tube feeding clean and patent with 0ml residual running Nephro @ 45 ml/hour. IV line is clean and patent. Bed is in lowest position, side rais x3 in upright position, fall, safety, aspiration precautions enforced. Will continue with plan of care.
--- NOTE | 2020-01-29 10:30 | NUR ---
RN NOTE Patient starting HD. controls technician at the bedside. Patient remains stable. Will continue to monitor.
[2020-01-29 11:54] LABS: CALCIUM, SERUM 9.1 mg/dL (8.5-10.1); POTASSIUM 4.4 mmol/L (3.5-5.1)
[2020-01-29 11:57] LABS: CREATININE 7.5 mg/dL (0.6-1.3)
--- NOTE | 2020-01-29 12:30 | NUR ---
RN NOTE HD complete 1000cc out. IV Vanco PRN to be given. Patient remains stable, will continue to monitor.
[2020-01-29] MEDS: VANCOMYCIN 500 MG in IV D5W 100 ML IV PRN (12:48)
[2020-01-29] MEDS: ACETAMINOPHEN 650 MG/20.3 ML UDC GT PRN (16:31)
--- NOTE | 2020-01-29 18:27 | NUR ---
RN CLOSING NOTE Patient is resting in bed, obtunded, showing no signs of acute distress or SOB, saturating 100% on mechanical vent Shiley #6 PEEP 5 AC 14 FiO2 40%. Tele monitor SR with BBB. G-tube feeding clean and patent with 5ml residual running Nephro @ 45 ml/hour. IV line is clean and patent. S/P HD today with 1000cc out. All patient needs met, all due medications given. Patient kept clean and dry throughout shift. Bed is in lowest position, side rails x3 in upright position, fall, safety, aspiration precautions enforced. Will endorse to overnight babysitter.
--- NOTE | 2020-01-29 20:10 | NUR ---
RT NOTE PT RECEIVED TRACHED ON MECHANICAL VENTILATION. CUFF CHECKED VIA MASONRY INSPECTOR. MDI TX GIVEN, NO ADVERSE REACTIONS. SX DONE, TRACH SECURED AND PATENT. ALARMS ON AND AUDIBLE. VENT PLUGGED TO RED OUTLET. PT CONNECTED TO CONT. PULSE OX. NO DISTRESS NOTED. WILL MONITOR T/O SHIFT. Addendum: 01/30/20 at 0008 by ZEUS SHAFFER RT Amended: Links added.
[2020-01-30] VITALS: BP 134/79
[2020-01-30] MEDS: BLOOD SUGAR DIAGNOSTIC 1 EACH STRIP IN SCH ×5 (00:35→23:11)
[2020-01-30] MEDS: IPRATROPIUM BROMIDE 14 GM INHALER (or 12.9 GM) IH SCH ×4 (01:30→19:55)
[2020-01-30 04:00] VITALS: BP 123/71
[2020-01-30] MEDS: NEPRO 1,000 ML BOTTLE GT PRN (05:54)
[2020-01-30] MEDS: INSULIN REGULAR, HUMAN 100 UNIT/ML 3 ML VIAL SQ PRN ×4 (05:55→23:09)
--- NOTE | 2020-01-30 06:50 | NUR ---
PRACTICE LEAD NOTES AWAKE & NON VERBAL. RESPONDS TO TACTILE STIMULI. NOT IN ANY DISTRESS. NO SOB NOTED. NO S/SX OF ANY PAIN OR DISCOMFORT AT THIS TIME. ON TELE SR WITH BBB @ 90 WITH IV-HL PATENT & INTACT. WITH GTF INFUSING WELL. AM CARE DONE. MONITORED ACCORDINGLY. CALL LIGHT WITHIN REACH. BED IN LOWEST POSITION. SR UP X 3 FOR SAFETY. WILL ENDORSE TO NEXT SHIFT. Addendum: 01/30/20 at 0713 by SUNDAY MOSS RN WITH SAME VENT SETTINGS
[2020-01-30 08:00] VITALS: BP 124/90
[2020-01-30] MEDS: DOCUSATE SODIUM LIQ 100 MG/10 ML UDC GT SCH ×2 (08:57→21:21)
[2020-01-30] MEDS: FAMOTIDINE (20 MG) 20 MG TABLET GT SCH (08:57)
[2020-01-30] MEDS: LACTOBACILLUS RHAMNOSUS GG 1 EACH CAP.SPRINK GT SCH ×2 (08:57→21:21)
[2020-01-30] MEDS: K PHOS NEUTRAL 250 MG TABLET GT SCH (08:57)
[2020-01-30] MEDS: FERROUS SULFATE UDC 300 MG/5 ML UDC GT SCH (08:57)
[2020-01-30] MEDS: MIDODRINE HCL (5MG) 5 MG TABLET GT SCH (08:58)
[2020-01-30] MEDS: POLYVINYL ALCOHOL 15 ML BOTTLE EACHEYE SCH ×2 (09:01→17:48)
[2020-01-30] MEDS: Z GUARD REMEDY 2 OZ OINT TP SCH (09:02)
[2020-01-30] MEDS: INSULIN GLARGINE, 100 UNIT/ML CARTRIDGE SQ SCH ×2 (09:08→21:27)
[2020-01-30 12:00] VITALS: BP 142/83
--- NOTE | 2020-01-30 13:31 | NUR ---
RT NOTE PT RCVD TRACH'D ON MECHANICAL VENT WITH CHARTED SETTINGS. PT SILVANA TX WELL. SX DONE. PT TRACH IS PATENT AND SECURE. VENT ALARMS ARE ON AND AUDIBLE. VENT PLUGGED INTO RED OUTLET. AMBU BAG AT BEDSIDE. NO SOB NOTED. Addendum: 01/30/20 at 1333 by AGUS BOURGEOIS RT Amended: Links added.
[2020-01-30 13:39] LABS: CALCIUM, SERUM 9.5 mg/dL (8.5-10.1); POTASSIUM 4.6 mmol/L (3.5-5.1)
[2020-01-30 16:00] VITALS: BP 159/94
--- NOTE | 2020-01-30 18:53 | NUR ---
BAND REAMER MACHINE OPERATOR END OF SHIFT SUMMARY PT IS OBTUNDED, AFEBRILE.CARDIAC-MONITORED, NSR W/ BBB. [facility], TOLERATING SETTINGS WELL. RESPIRATIONS ARE EVEN AND UNLABORED, NOT IN ANY ACUTE DISTRESS NOTED. +FLATUS, BMX1 DURING SHIFT. INCONTINENT OF B/B. REPOSITIONED Q2H. ON GTF NEPRO @45ML/HR, NO RESIDUALS. HOB KEPT ELEVATED. ALL NEEDS MET AND RENDERED. SAFETY MEASURES ARE IN PLACE. CALL LIGHT IS LEFT WITHIN REACH. WILL MONITOR AND CONTINUE POC.
[2020-01-30 20:00] VITALS: BP 130/86
--- NOTE | 2020-01-30 20:00 | NUR ---
TELE/RN OPENING NOTES RECEIVED PATIENT IN BED, HOB ELEVATED ON PRESCRIBED SETTING OF MECHANICAL VENT, GTUBE FEEDING SET, RESIDUAL CHECK. PATIENT OBTUNDED,RIGHT FEMORAL HD CATHETHER INTACT. WITH LEFT HAND GAUGE 22. RECEIVED ENDORSEMENT FROM AM RN FOR SHARON.BED LOCKED, CALL LIGHTS WITHIN REACH. WILL MONITOR. INCONTINENT CARE AND EXTENSIVE ASSISTANCE.
--- NOTE | 2020-01-30 23:01 | NUR ---
RT NOTE PT RECEIVED TRACHED ON MECHANICAL VENTILATION. CUFF CHECKED VIA MEDICAL AUTHORIZATION SPECIALIST. MDI TX GIVEN, NO ADVERSE REACTIONS. SX DONE, TRACH SECURED AND PATENT. ALARMS ON AND AUDIBLE. VENT PLUGGED TO RED OUTLET. PT CONNECTED TO CONT. PULSE OX. NO DISTRESS NOTED. WILL MONITOR T/O SHIFT. Addendum: 01/30/20 at 2302 by ZEUS SHAFFER RT Amended: Links added.
[2020-01-31] VITALS: BP_SYST 110; BP_SYST 144; BP_DIAS 60; BP_DIAS 80
[2020-01-31] MEDS: IPRATROPIUM BROMIDE 14 GM INHALER (or 12.9 GM) IH SCH ×4 (01:39→19:21)
[2020-01-31] MEDS: NEPRO 1,000 ML BOTTLE GT PRN (02:18)
[2020-01-31 04:00] VITALS: BP 142/87
[2020-01-31] MEDS: BLOOD SUGAR DIAGNOSTIC 1 EACH STRIP IN SCH ×3 (05:11→17:06)
[2020-01-31] MEDS: INSULIN REGULAR, HUMAN 100 UNIT/ML 3 ML VIAL SQ PRN ×3 (05:22→17:06)
--- NOTE | 2020-01-31 06:40 | NUR ---
TELE/RN CLOSING NOTES PATIENT ABLE TO SLEEP DURING THE NIGHT,HOB ELEVATE, MONITORED FOR ANY CHANGES, ON MECHANICAL VENT WITH PRESCRIBED SETTING, GT TUBE FLUSHED AND PATENT RUNNING WITH NO RESIDUAL. ATTENDED TO ALL NEEDS, BED LOCKED, CALL LIGHTS WITHIN REACH, REPOSITIONED FOR COMFORT. WILL ENDORSE TO AM RN FOR SHARON.
--- NOTE | 2020-01-31 07:30 | NUR ---
rn opening notes patient received on a ventilator, no sob noted, ventilator connected to the wall. non verbal and obtunded. Patient on rele. Tube feeding present, nephro at 45 ml per hour for 24 hours. R femoral cath and L hand 22 gauge present. Bed at the lowest setting, call light within reach, side rails up x2.
[2020-01-31 07:31] LABS: CALCIUM, SERUM 9.7 mg/dL (8.5-10.1); POTASSIUM 4.5 mmol/L (3.5-5.1)
[2020-01-31 07:36] LABS: CREATININE 7.8 mg/dL (0.6-1.3)
[2020-01-31 08:00] VITALS: BP 154/82
[2020-01-31] MEDS: Z GUARD REMEDY 2 OZ OINT TP SCH (08:03)
[2020-01-31] MEDS: POLYVINYL ALCOHOL 15 ML BOTTLE EACHEYE SCH ×2 (08:03→16:12)
[2020-01-31] MEDS: FERROUS SULFATE UDC 300 MG/5 ML UDC GT SCH (08:03)
[2020-01-31] MEDS: K PHOS NEUTRAL 250 MG TABLET GT SCH (08:03)
[2020-01-31] MEDS: DOCUSATE SODIUM LIQ 100 MG/10 ML UDC GT SCH ×2 (08:03→21:15)
[2020-01-31] MEDS: LACTOBACILLUS RHAMNOSUS GG 1 EACH CAP.SPRINK GT SCH ×2 (08:03→21:15)
[2020-01-31] MEDS: FAMOTIDINE (20 MG) 20 MG TABLET GT SCH (08:03)
[2020-01-31] MEDS: INSULIN GLARGINE, 100 UNIT/ML CARTRIDGE SQ SCH ×2 (08:05→22:11)
[2020-01-31 16:00] VITALS: BP 129/84
--- NOTE | 2020-01-31 17:08 | NUR ---
rn notes 1L out from HD, vital signs stable.
--- NOTE | 2020-01-31 18:23 | NUR ---
rn closing notes patient remains on a ventilator, no sob noted, patient shows no s/s of pain at this time. nephro running 24 hours, @ 45 ml per hour. Insulin coverage given without s/s of hypoglycemia. Awaiting for placement of perma cath. Bed at the lowest setting, call light within reach, side rails up x2. will give report to NOC RN for SHARON bedside.
--- NOTE | 2020-01-31 19:10 | NUR ---
VEHICLE DISMANTLER NOTES RECEIVED PT BED RESTING. PT A/O X 0 OBTUNDED AND OPENS EYES. TOLERATING VENT SETTING WELL, BREATHING EVEN AND UNLABORED, NO SOB NOTED THROUGHOUT SHIFT. NO S/S OF PAIN AT THIS TIME. PT NOTED WITH GTUBE NOTED INFUSING AND TOLERATING WELL. IV LOCATED ON AND #22 SL. SAFETY MEASURES IN PLACE WITH BED IN LOWEST POSITION, CALL LIGHT WITHIN REACH, WITH SIDE RAILS UP X2. CALL LIGHT WITHIN REACH. WILL CONTINUE TO MONITOR.
--- NOTE | 2020-01-31 19:45 | NUR ---
RT NOTE PT RECEIVED TRACHED ON MECHANICAL VENTILATION. CUFF CHECKED VIA WORKPLACE RELATIONS ADVISER. AMBU BAG @ BEDSIDE. SX DONE, TRACH SECURED AND PATENT. ALARMS ON AND AUDIBLE. NO DISTRESS NOTED. WILL MONITOR T/O SHIFT. Addendum: 01/31/20 at 1946 by MIRIAN PIERCE RT Amended: Links added.
--- NOTE | 2020-01-31 19:51 | NUR ---
WET AND DRY SUGAR BIN OPERATOR NOTES PHARMACY CONTACTED FOR POST HD VANCO. VANCO TROUGH LEVEL 25. PHARMACY INFORMED OK TO GIVE ORDER OF VANCO 500MG NOW. WILL CONTINUE TO MONITOR. Addendum: 01/31/20 at 1954 by SCOTT BELLA RN RANDOM VANCO LEVEL IS 25 NOT TROUGH.
--- NOTE | 2020-01-31 20:10 | NUR ---
COMPRESSOR SERVICE TECHNICIAN NOTES PAGED MD ABOUT VANCO TO BE GIVEN ORDER STATES TO GIVE IF RANDOM < OR = TO 20 BUT PHARMACY STATES OKAY TO GIVE. AWAITING MD RESPONSE. WILL CONTINUE TO MONITOR.
--- NOTE | 2020-01-31 21:14 | NUR ---
OVEN BUILDER NOTES CALLED BACK FOR ANTOLIN TO HOLD AT THIS TIME AND FOLLOW UP WITH PHARMACY IN THE AM. WILL CONTINUE TO MONITOR.
[2020-02-01] MEDS: BLOOD SUGAR DIAGNOSTIC 1 EACH STRIP IN SCH ×4 (00:39→17:34)
[2020-02-01] MEDS: INSULIN REGULAR, HUMAN 100 UNIT/ML 3 ML VIAL SQ PRN ×2 (00:41→17:36)
[2020-02-01] MEDS: IPRATROPIUM BROMIDE 14 GM INHALER (or 12.9 GM) IH SCH ×4 (01:12→20:05)
--- NOTE | 2020-02-01 07:00 | NUR ---
PROCESS TANK TENDER NOTES FOLLOWED UP WITH PHARMACY ABOUT VANCO, STATED DO NOT GIVE. WILL CONTINUE TO MONITOR.
--- NOTE | 2020-02-01 07:15 | NUR ---
SHIATSU THERAPIST OPENING NOTES RECEIVED PT IN BED, ASLEEP, OBTUNDED BUT OPENS EYES. PT TOLERATING CURRENT VENT SETTING, WITH NO ACUTE RESPIRATORY DISTRESS NOTED. ON TELEMONITORING SR HR 84. PT NOT EXHIBITING ANY PAIN OR DISCOMFORT AT THIS TIME. PIV LEFT HAND G22, FLUSHED WITH NS INTACT AND OPERATIONAL. RIGHT GROIN ESTEBAN CATH PRESENT WELL FOR HD ACCESS. PT KEPT COMFORTABLE AT THIS TIME. CALL LIGHT KEPT WITHIN REACH. PT'S BED IN LOWEST, LOCKED POSITION WITH SRX3. HOB ELEVATED. WILL CONTINUE PLAN OF CARE.
--- NOTE | 2020-02-01 07:36 | NUR ---
NAVAL AIRCREWMAN OPERATOR NOTES PT BED RESTING. PT A/O X 0 OBTUNDED AND OPENS EYES. TOLERATING VENT SETTING WELL, BREATHING EVEN AND UNLABORED, NO SOB NOTED THROUGHOUT SHIFT. NO S/S OF PAIN AT THIS TIME. PT NOTED WITH GTUBE NOTED INFUSING AND TOLERATING WELL. PT KEPT CLEAN, DRY, AND COMFORTABLE. IV LOCATED ON [facility] #22 SL. SAFETY MEASURES IN PLACE WITH BED IN LOWEST POSITION, CALL LIGHT WITHIN REACH, WITH SIDE RAILS UP X2. CALL LIGHT WITHIN REACH. WILL ENDORSE TO ONCOMING NURSE FOR SHARON.
[2020-02-01 08:00] VITALS: BP 126/97
[2020-02-01] MEDS: DOCUSATE SODIUM LIQ 100 MG/10 ML UDC GT SCH ×2 (09:06→21:28)
[2020-02-01] MEDS: FERROUS SULFATE UDC 300 MG/5 ML UDC GT SCH (09:06)
[2020-02-01] MEDS: FAMOTIDINE (20 MG) 20 MG TABLET GT SCH (09:07)
[2020-02-01] MEDS: K PHOS NEUTRAL 250 MG TABLET GT SCH (09:07)
[2020-02-01] MEDS: LACTOBACILLUS RHAMNOSUS GG 1 EACH CAP.SPRINK GT SCH ×2 (09:07→21:28)
[2020-02-01] MEDS: INSULIN GLARGINE, 100 UNIT/ML CARTRIDGE SQ SCH ×2 (09:08→21:34)
[2020-02-01] MEDS: POLYVINYL ALCOHOL 15 ML BOTTLE EACHEYE SCH ×2 (09:09→16:32)
[2020-02-01] MEDS: Z GUARD REMEDY 2 OZ OINT TP SCH (09:09)
[2020-02-01] MEDS: NEPRO 1,000 ML BOTTLE GT PRN (11:32)
--- NOTE | 2020-02-01 17:21 | NUR ---
MODEL TECHNICIAN NOTES RECEIVED ORDER FORM DR. OROURKE REGARDING PERMA CATH PLACEMENT TOMORROW. RN CALLED BROTHER/KORY AND DOESN'T WANT TO GIVE CONSENT YET UNTIL HE TALKS TO THE DOCTOR. DR. OROURKE INFORMED AND GAVE KORY'S NUMBER. AWAITING FOR CALL BACK.
--- NOTE | 2020-02-01 17:31 | NUR ---
MOTORCYCLE SUBASSEMBLY REPAIRER NOTES RECEIVED CALL BACK FROM ANDREER/KORY (NEXT PERSON TO NOTIFY) REGARDING CONSENT FOR SCHEDULED PERMACATH PLACEMENT WITH DR. OROURKE. ANOTHER/RN/RADHA Perry WITNESSED CONSENT VIA PHONE. WILL CONTINUE TO MONITOR.
--- NOTE | 2020-02-01 18:36 | NUR ---
ERGONOMICS CONSULTANT CLOSING NOTES PT REMAINS IN BED, ASLEEP, OBTUNDED BUT OPENS EYES. PT TOLERATING CURRENT VENT SETTING, WITH NO ACUTE RESPIRATORY DISTRESS NOTED. ON TELEMONITORING SR HR 92. PT NOT EXHIBITING ANY PAIN OR DISCOMFORT AT THIS TIME. PIV LEFT HAND G22, ONGOING NS AT TKO, INTACT AND OPERATIONAL. RIGHT GROIN ESTEBAN CATH PRESENT WELL FOR HD ACCESS. PT KEPT COMFORTABLE AT THIS TIME. ALL NEEDS AND CARE ATTENDED AND PROVIDED. PT SCHEDULED FOR SURGERY FRANK WITH DR OROURKE. ORDERS PLACED, CONSENTS SIGNED, NPO POST MIDNIGHT. CALL LIGHT KEPT WITHIN REACH. PT'S BED IN LOWEST, LOCKED POSITION WITH SRX3. HOB ELEVATED. WILL ENDORSE TO INCOMING COSMETIC MAKER FOR SHARON.
[2020-02-01 20:00] VITALS: BP 151/85
[2020-02-02] VITALS (12 sets, daily range): BP systolic 105–156; BP diastolic 50–104
[2020-02-02] MEDS: IPRATROPIUM BROMIDE 14 GM INHALER (or 12.9 GM) IH SCH ×4 (01:53→20:02)
[2020-02-02] MEDS: BLOOD SUGAR DIAGNOSTIC 1 EACH STRIP IN SCH ×5 (02:00→23:53)
--- NOTE | 2020-02-02 06:41 | NUR ---
MS RN NOTES PT NON VERBAL WITH SAME VENT SETTINGS. NOT IN ANY DISTRESS. NO SOB NOTED. NO S/SX OF ANY PAIN OR DISCOMFORT AT THIS TIME. WITH GT CLAMPED. WITH IV-HL PATENT & INTACT. AM CARE DONE. MONITORED ACCORDINGLY. CALL LIGHT WITHIN REACH. BED IN LOWEST POSITION. SR UP X 3 WITH BED ALARM ON FOR SAFETY. WILL ENDORSE TO NEXT SHIFT.
--- NOTE | 2020-02-02 08:06 | NUR ---
RN NOTES PATIENT IN BED SLEEPING NO SOB OR ACUTE DISTRESS NOTED. BED IN LOW LOCKED POSITION, CALL LIGHT WITHIN REACH. WILL CONTINUE TO MONITOR.
[2020-02-02] MEDS: LACTOBACILLUS RHAMNOSUS GG 1 EACH CAP.SPRINK GT SCH ×2 (09:00→21:29)
[2020-02-02] MEDS: K PHOS NEUTRAL 250 MG TABLET GT SCH (09:00)
[2020-02-02] MEDS: FERROUS SULFATE UDC 300 MG/5 ML UDC GT SCH (09:00)
[2020-02-02] MEDS: DOCUSATE SODIUM LIQ 100 MG/10 ML UDC GT SCH ×2 (09:00→21:29)
[2020-02-02] MEDS: INSULIN GLARGINE, 100 UNIT/ML CARTRIDGE SQ SCH ×2 (09:00→21:45)
[2020-02-02] MEDS: MIDODRINE HCL (5MG) 5 MG TABLET GT SCH ×2 (09:00→15:40)
[2020-02-02] MEDS: FAMOTIDINE (20 MG) 20 MG TABLET GT SCH (09:00)
[2020-02-02] MEDS: Z GUARD REMEDY 2 OZ OINT TP SCH (09:07)
[2020-02-02 09:13] LABS: BASOPHILS % (AUTO) 0.6 % (0.0-2.0); EOSINOPHILS % (AUTO) 6.4 % (0.0-6.0); HEMATOCRIT 27 % (39-51); HEMOGLOBIN 8.8 g/dL (13.5-17.5); LYMPHOCYTES # (AUTO) 1.4 /CMM (0.8-4.8); LYMPHOCYTES % (AUTO) 20.7 % (20.0-44.0); MEAN CORPUSCULAR HGB CONC 33 g/dl (31.0-36.0); MEAN CORPUSCULAR VOLUME 87 fL (80-96); MONOCYTES # (AUTO) 0.5 /CMM (0.1-1.30); MONOCYTES % (AUTO) 7.1 % (2.0-12.0); NEUTROPHILS # (AUTO) 4.4 /CMM (1.8-8.9); NEUTROPHILS % (AUTO) 65.2 % (43.0-81.0); PLATELET COUNT (AUTO) 368 /CMM (150-450); RED BLOOD CELL COUNT(AUTO) 3.07 MIL/uL (4.5-6.0); WHITE BLOOD COUNT (AUTO) 6.7 K/uL (4.3-11.0)
[2020-02-02] MEDS ORDERED: LIDOCAINE 1% INJ 50 ML MDV IJ ONE (09:23)
[2020-02-02] MEDS: POLYVINYL ALCOHOL 15 ML BOTTLE EACHEYE SCH ×2 (09:23→17:05)
[2020-02-02] MEDS ORDERED: ANESTHESIA TRAY IN PYXIS 1 EA TRAY MC ONE (09:23)
[2020-02-02] MEDS ORDERED: HEPARIN SODIUM, PORCINE 1,000 UNIT/ML VIAL ONE (09:23)
[2020-02-02 09:55] LABS: CALCIUM, SERUM 9.2 mg/dL (8.5-10.1); CREATININE 7.2 mg/dL (0.6-1.3); MAGNESIUM 2.8 mg/dL (1.8-2.4); PHOSPHORUS 5.7 mg/dL (2.5-4.9); POTASSIUM 4.6 mmol/L (3.5-5.1)
--- NOTE | 2020-02-02 09:55 | NUR ---
RT NOTE PT RCVD TRACH'D ON MECHANICAL VENT WITH CHARTED SETTINGS. PT SILVANA TX WELL. SX DONE. PT TRACH IS PATENT AND SECURE. VENT ALARMS ARE ON AND AUDIBLE. VENT PLUGGED INTO RED OUTLET. AMBU BAG AT BEDSIDE. NO SOB NOTED. Addendum: 02/02/20 at 0956 by AGUS BOURGEOIS RT Amended: Links added.
--- NOTE | 2020-02-02 10:30 | NUR ---
SPINDLE SETTER NOTES PATIENT TRANSFERRED TO OR FOR PERMA CHAT PLACEMENT.
[2020-02-02] MEDS ORDERED: CELLULOSE,OXIDIZED 1 PKT EACH MC ONE (10:55)
--- NOTE | 2020-02-02 11:00 | NUR ---
CUSTOMER SUPPORT ENGINEER NOTES PATIENT RETURNED FRO OR IN STABLE CONDITION. PATIENT PLACED ON TELE MONITORING. CONTINUES PULSE OXIMETER. WILL CONTINUE TO MONITOR.
--- NOTE | 2020-02-02 11:18 | NUR ---
RT NOTE LATE ENTRY @ 1015 PT TRANSFERRED TO OR WITH NO COMPLICATIONS.
--- NOTE | 2020-02-02 11:20 | NUR ---
RT NOTE LATE ENTRY @ 1115 PT TRANSFERRED FROM OR TO 3RD FLOOR WITH NO COMPLICATIONS.
[2020-02-02] MEDS: INSULIN REGULAR, HUMAN 100 UNIT/ML 3 ML VIAL SQ PRN ×3 (12:26→23:57)
--- NOTE | 2020-02-02 15:45 | NUR ---
SUPERVISOR VARNISH NOTES PATIENT NOTED WITH BP OF 87/43 PULSE OF 84 RESPIRATION 17 POST HD. UNSCHEDULED MIDODRINE WAS ADMINISTERED SINCE AM DOSE WAS HELD. WILL CONTINUE TO MONITOR CLOSELY.
[2020-02-02] MEDS: NEPRO 1,000 ML BOTTLE GT PRN (15:50)
--- NOTE | 2020-02-02 16:01 | NUR ---
ANIME DESIGNER NOTES BP RECHECKED NOTED 96/61 PULSE 84 WILL CONTINUE TO MONITOR.
[2020-02-02] MEDS: VANCOMYCIN 500 MG in IV D5W 100 ML IV PRN (16:21)
--- NOTE | 2020-02-02 18:55 | NUR ---
UX LEAD NOTES PATIENT IN BED IN STABLE CONDITION. NO SIGNS OF BLEEDING NOTED. ALL DUE MEDICATIONS ADMINISTERED. ALL NEEDS MET. NO ACUTE CHANGES NOTED DURING AM SHIFT. WILL ENDORSE CARE TO PM SHIFT.
--- NOTE | 2020-02-02 19:48 | NUR ---
CREAM HAULER OPENING NOTES PATIENT IS NONVERBAL AND OBTUNDED. TOLERATING VENT SETTINGS WELL, SPO2 100%. TELE MONITOR READING SR W/ BBB HEART RATE 92. NO S/S OF ACUTE RESPIRATORY DISTRESS OR PAIN NOTED. IV PRESENT ON LEFT HAND, SIZE 22, INTACT & PATENT WITH NS RUNNING TKO. SAFETY MEASURES IN PLACE AND PATIENT'S NEEDS MET. BED LOCKED, ALARM ON, SIDE RAILS X3, CALL LIGHT WITHIN REACH. WILL CONTINUE TO MONITOR.
[2020-02-03] VITALS: BP 148/71
--- NOTE | 2020-02-03 00:16 | NUR ---
CHEMICAL EQUIPMENT CONTROLLER NOTES PATIENT TOLERATING VENT SETTINGS WELL; SPO2 100. NO S/S OF ACUTE RESPIRATORY DISTRESS OR PAIN NOTED. TELE MONITOR READING NSR, HEART RATE 84. SAFETY MEASURES IN PLACE. WILL CONTINUE TO MONITOR.
[2020-02-03] MEDS: IPRATROPIUM BROMIDE 14 GM INHALER (or 12.9 GM) IH SCH ×4 (02:25→19:58)
--- NOTE | 2020-02-03 02:32 | NUR ---
RT Pt trach on mech vent. no resp distress noted. Trach secure and patent. Addendum: 02/03/20 at 0233 by SAIMA NAVARRO RT Amended: Links added.
[2020-02-03 04:00] VITALS: BP 117/69
--- NOTE | 2020-02-03 04:18 | NUR ---
AIRPLANE ENGINEER NOTES PATIENT TOLERATING VENT SETTINGS WELL; SPO2 100. NO DISTRESS NOTED. WILL CONTINUE TO MONITOR.
[2020-02-03] MEDS: BLOOD SUGAR DIAGNOSTIC 1 EACH STRIP IN SCH ×3 (06:02→17:18)
[2020-02-03] MEDS: INSULIN REGULAR, HUMAN 100 UNIT/ML 3 ML VIAL SQ PRN ×3 (06:05→17:23)
--- NOTE | 2020-02-03 06:40 | NUR ---
COMMUNICATION PROFESSOR CLOSING NOTES PATIENT IS NONVERBAL AND OBTUNDED. TOLERATING VENT SETTINGS WELL, SPO2 100%. TELE MONITOR READING SR W/ BBB HEART RATE 86. NO S/S OF ACUTE RESPIRATORY DISTRESS OR PAIN NOTED. IV PRESENT ON LEFT HAND, SIZE 22, INTACT & PATENT WITH NS RUNNING TKO. GTUBE PRESENT WITH NEPHRO RUNNING AT 45 ML/HR; TOLERATING FEEDING WELL; NO RESIDUALS NOTED UPON ASPIRATION. SAFETY MEASURES IN PLACE AND PATIENT'S NEEDS MET. BED LOCKED, ALARM ON, SIDE RAILS X3, CALL LIGHT WITHIN REACH. WILL ENDORSE TO DAY SHIFT NURSE PLAN OF CARE.
--- NOTE | 2020-02-03 07:52 | NUR ---
RN OPENING NOTE Patient is resting in bed, obtunded, nonverbal, on mechanical ventilator shiley #6 TV 500 FiO2 40 AC 14 PEEP 5. Continuous pulse ox at the bedside saturating 100%. Tele monitor SR with BBB HR 80s. IV line in the left hand #22g is clean and intact running TKO. RUC chest permacath noted, pressing dressing is clean and intact. Right femoral HD site noted. G-tube feeding running at 45 ml/hour with 0 ml residual at this time. Bed is in lowest position, side rails x3 in upright position, safety and aspiration precautions enforced. Will continue with plan of care.
[2020-02-03 08:00] VITALS: BP_SYST 133; BP_DIAS 74; BP_DIAS 79
--- NOTE | 2020-02-03 08:23 | NUR ---
PT RECEIVED ON CURRENT SETTINGS WITH NO SIGNS OF RESPIRATORY DISTRESS. AIRWAY IS PATENT AND SECURE. VENT IS PLUGGED INTO RED OUTLET WITH ALARMS ON AND AUDIBLE. SUCTION PT NEEDED. WILL CONTINUE TO MONITOR. Addendum: 02/03/20 at 0824 by ALAN VALE RT Amended: Links added.
[2020-02-03] MEDS: K PHOS NEUTRAL 250 MG TABLET GT SCH (08:57)
[2020-02-03] MEDS: FERROUS SULFATE UDC 300 MG/5 ML UDC GT SCH (08:57)
[2020-02-03] MEDS: POLYVINYL ALCOHOL 15 ML BOTTLE EACHEYE SCH ×2 (08:57→17:23)
[2020-02-03] MEDS: Z GUARD REMEDY 2 OZ OINT TP SCH (08:57)
[2020-02-03] MEDS: LACTOBACILLUS RHAMNOSUS GG 1 EACH CAP.SPRINK GT SCH ×2 (08:57→21:29)
[2020-02-03] MEDS: FAMOTIDINE (20 MG) 20 MG TABLET GT SCH (08:57)
[2020-02-03] MEDS: DOCUSATE SODIUM LIQ 100 MG/10 ML UDC GT SCH ×2 (09:00→21:00)
[2020-02-03] MEDS: INSULIN GLARGINE, 100 UNIT/ML CARTRIDGE SQ SCH ×2 (09:00→22:19)
--- NOTE | 2020-02-03 09:01 | NUR ---
RN NOTE Ziggy held this AM due to patient having 2 large bowel movements early this AM.
[2020-02-03 12:00] VITALS: BP 135/68
[2020-02-03] MEDS: NEPRO 1,000 ML BOTTLE GT PRN (15:48)
[2020-02-03 16:00] VITALS: BP 158/92
--- NOTE | 2020-02-03 18:56 | NUR ---
RN CLOSING NOTE Patient is resting in bed, obtunded, nonverbal, on mechanical ventilator shiley #6 TV 500 FiO2 40 AC 14 PEEP 5. Continuous pulse ox at the bedside saturating 100%. Tele monitor SR with BBB HR 90s. IV line in the left hand #22g is clean and intact running TKO. RUC chest permacath noted, pressing dressing is clean and intact. Right femoral HD site noted. G-tube feeding running at 45 ml/hour with 0 ml residual at this time. All patient needs met, all due medications given, patient kept clean and comfortable throughout shift. Bed is in lowest position, side rails x3 in upright position, safety and aspiration precautions enforced. Will endorse to pan operator.
--- NOTE | 2020-02-03 19:30 | NUR ---
SMALL ORDER CUTTER OPENING NOTES PATIENT IS NONVERBAL AND OBTUNDED. TOLERATING VENT SETTINGS WELL, SPO2 100%. TELE MONITOR READING SR W/ BBB HEART RATE 90. NO S/S OF ACUTE RESPIRATORY DISTRESS OR PAIN NOTED. IV PRESENT ON LEFT HAND, SIZE 22, INTACT & PATENT WITH NS RUNNING TKO. GTUBE PRESENT WITH NEPRO RUNNING AT 45 ML/HR, NO RESIDUALS UPON ASPIRATION, TOLERATING FEEDING WELL. SAFETY MEASURES IN PLACE AND PATIENT'S NEEDS MET. BED LOCKED, ALARM ON, SIDE RAILS X3, CALL LIGHT WITHIN REACH. WILL CONTINUE TO MONITOR.
[2020-02-03 20:00] VITALS: BP 149/79
[2020-02-03] MEDS ORDERED: INSULIN GLARGINE, 100 UNIT/ML CARTRIDGE SQ ONE (22:02)
[2020-02-04] VITALS: BP 125/86
[2020-02-04] MEDS: INSULIN REGULAR, HUMAN 100 UNIT/ML 3 ML VIAL SQ PRN ×4 (00:36→17:15)
[2020-02-04] MEDS: BLOOD SUGAR DIAGNOSTIC 1 EACH STRIP IN SCH ×5 (00:42→22:14)
[2020-02-04] MEDS: IPRATROPIUM BROMIDE 14 GM INHALER (or 12.9 GM) IH SCH ×4 (02:09→19:50)
[2020-02-04 04:00] VITALS: BP 131/87
--- NOTE | 2020-02-04 07:08 | NUR ---
TERMITE CONTROL SERVICE REPRESENTATIVE CLOSING NOTES PATIENT IS NONVERBAL AND OBTUNDED. TOLERATING VENT SETTINGS WELL, SPO2 100%. TELE MONITOR READING SR W/ BBB HEART RATE 87. NO S/S OF ACUTE RESPIRATORY DISTRESS OR PAIN NOTED. IV PRESENT ON LEFT HAND, SIZE 22, INTACT & PATENT WITH NS RUNNING TKO. GTUBE PRESENT WITH NEPRO RUNNING AT 45 ML/HR; CONTINUES TO TOLERATING FEEDING WELL. SAFETY MEASURES IN PLACE AND PATIENT'S NEEDS MET. BED LOCKED, ALARM ON, SIDE RAILS X3, CALL LIGHT WITHIN REACH. WILL ENDORSE TO DAY SHIFT NURSE PLAN OF CARE.
--- NOTE | 2020-02-04 07:50 | NUR ---
MS/RN Opening note Patient received from outpatient facility physical therapist. Non verbal, vital signs stable, does not appear in any distress or pain at this time. GT feeding infusing at 45ml/hr, no residual noted. Heplock to left hand flushing well with normal saline, no infiltration seen. Vent settings remain the same, all alarms checked and working. Safety measures in place, bed in low setting, side rails X3 in upright position. Will continue to monitor and ensure safety.
[2020-02-04 08:01] VITALS: BP 136/58
[2020-02-04 08:17] VITALS: BP 136/58
[2020-02-04] MEDS: K PHOS NEUTRAL 250 MG TABLET GT SCH (08:27)
[2020-02-04] MEDS: FERROUS SULFATE UDC 300 MG/5 ML UDC GT SCH (08:27)
[2020-02-04] MEDS: FAMOTIDINE (20 MG) 20 MG TABLET GT SCH (08:27)
[2020-02-04] MEDS: DOCUSATE SODIUM LIQ 100 MG/10 ML UDC GT SCH ×2 (08:27→20:12)
[2020-02-04] MEDS: LACTOBACILLUS RHAMNOSUS GG 1 EACH CAP.SPRINK GT SCH ×2 (08:27→20:12)
[2020-02-04] MEDS: MIDODRINE HCL (5MG) 5 MG TABLET GT SCH (08:28)
[2020-02-04] MEDS: POLYVINYL ALCOHOL 15 ML BOTTLE EACHEYE SCH ×2 (08:29→17:10)
[2020-02-04] MEDS: Z GUARD REMEDY 2 OZ OINT TP SCH (08:29)
[2020-02-04] MEDS: INSULIN GLARGINE, 100 UNIT/ML CARTRIDGE SQ SCH ×2 (09:00→22:00)
--- NOTE | 2020-02-04 09:29 | NUR ---
MS/RN HDX HDX treatment stopped early due to hypotension.
--- NOTE | 2020-02-04 09:34 | NUR ---
MS/ROSIE Neal level ordered as patient scheduled for vancomycin after every dialysis.
--- NOTE | 2020-02-04 10:30 | NUR ---
MS/RN S/B Dr Montana Seen by Dr Montana - made aware that HDX was aborted due to hypotension. Labs ordered for tomorrow.
[2020-02-04 11:04] LABS: BASOPHILS % (AUTO) 0.5 % (0.0-2.0); HEMATOCRIT 23 % (39-51); HEMOGLOBIN 7.8 g/dL (13.5-17.5); LYMPHOCYTES # (AUTO) 1.2 /CMM (0.8-4.8); MEAN CORPUSCULAR HGB CONC 34 g/dl (31.0-36.0); MEAN CORPUSCULAR VOLUME 87 fL (80-96); MONOCYTES # (AUTO) 0.4 /CMM (0.1-1.30); MONOCYTES % (AUTO) 7.5 % (2.0-12.0); NEUTROPHILS # (AUTO) 3.9 /CMM (1.8-8.9); PLATELET COUNT (AUTO) 285 /CMM (150-450); RED BLOOD CELL COUNT(AUTO) 2.66 MIL/uL (4.5-6.0); WHITE BLOOD COUNT (AUTO) 5.8 K/uL (4.3-11.0)
[2020-02-04 11:34] LABS: ALBUMIN 2.9 g/dL (3.4-5.0); BILIRUBIN,TOTAL 0.3 mg/dL (0.2-1.0); CALCIUM, SERUM 8.9 mg/dL (8.5-10.1); CREATININE 5.2 mg/dL (0.6-1.3); MAGNESIUM 2.6 mg/dL (1.8-2.4); PHOSPHORUS 4.2 mg/dL (2.5-4.9); TOTAL PROTEIN, SERUM 7.7 g/dL (6.4-8.2)
--- NOTE | 2020-02-04 12:30 | NUR ---
MS/RN Blood sugar Blood sugar at noon 160, per sliding scale, two units of regular insulin to be administered.
[2020-02-04] MEDS: EPOETIN ALFA (10,000 UNIT) 10,000 UNIT/ML VIAL SQ SCH (14:06)
--- NOTE | 2020-02-04 15:36 | NUR ---
MS/RN Epogen Epogen 10,000 units given as ordered, Hb 7.8
[2020-02-04] MEDS: NEPRO 1,000 ML BOTTLE GT PRN ×2 (15:52→20:55)
[2020-02-04 17:24] VITALS: BP 130/74
--- NOTE | 2020-02-04 18:21 | NUR ---
MS/RN End note Patient remains in stable condition, all needs attended, stable on vent, no changes to settings. Saturating 100%. Has been turned and repositioned every 2-3 hours throughout the day to prevent further skin breakdown. GT feeding infusing at 45ml/hr, no residual noted. Vital signs stable, blood pressure now back in normal range following hypotensive episode during HDX. no new concerns, will endorse to shift leader.
--- NOTE | 2020-02-04 19:49 | NUR ---
TELE/RN OPENING NOTES RECEIVED PATIENT IN BED, HOB ELEVATED, ON PRESCRIBED SETTING OG MECHANICAL VENT, WITH CONTINOUS PULSE OXIMETER WITH SATURATION OF 100 %, SKIN WARM TO TOUCH. RESPIRATIONS EVEN AND UNLABORED. ON GTUBE FEEDING , WITH ZERO RESIDUAL. EXTENSIVE ASSISTIVE REQUIRE, WILL MONITOR AND TO DO SHARON. RIGHT IMMOBILIZER. RECEIVED ENDORSEMENT FROM AM RN FOR SHARON. WILL MONITOR.BED LOCKED, CALL LIGHTS WITHIN REACH.
[2020-02-04 20:00] VITALS: BP 132/88
--- NOTE | 2020-02-04 20:30 | NUR ---
TELE/RN NOTED TELE AT SR. PROTEIN PURIFICATION SCIENTIST ANA HALEY FOR GTUBE DISLODGEMENT AND MADE AWARE PATIENT WITH CLOGGED GTUBE, THAT CAUSED CUT IN THE MIDDLE OF TUBING, MD ORDER TO HOLD GTUBE FEEDING AND GTUBE MEDICATION AND BECAUSE PATIENT IS DIABETIC TO START IV D5NS AT 30 ML PER HOUR. ORDER CARRIED OUT AND TO ORDER GI CONSULT IN AM.
[2020-02-04] MEDS ORDERED: IV D5/ 0.9% NACL 1,000 ML IV ONE (21:00)
[2020-02-05 00:36] VITALS: BP 139/86
[2020-02-05] MEDS: IPRATROPIUM BROMIDE 14 GM INHALER (or 12.9 GM) IH SCH ×4 (00:36→20:06)
[2020-02-05 04:00] VITALS: BP 131/76
[2020-02-05] MEDS: BLOOD SUGAR DIAGNOSTIC 1 EACH STRIP IN SCH ×4 (04:50→23:57)
--- NOTE | 2020-02-05 06:40 | NUR ---
329-1TELE/RN CLOSING NOTES PATIENT IN BED, MONITORED FOR ANY CHANGES,ATTENDED TO ALL NEEDS, BED LOCKED, CALL LIGHTS WITHIN REACH, MECHANICAL VENT SETTING ORDERED, WILL ENDORSE TO AM RN FOR SHARON.
--- NOTE | 2020-02-05 07:25 | NUR ---
SUBSCRIPTION AGENT NOTES PATIENT IN BED NON VERBAL, HOB ELEVATED. NO ACUTE DISTRESS NOTED. BREATHING UNLABORED. NO SOB NOTED. IV ACCESS PATENT AND INTACT, NO REDNESS, NO SWELLING NOTED.HD ACCESS INTACT WITH DRESSING CLEAN AND DRY. SAFETY MEASURES IN PLACE. CALL LIGHT WITHIN REACH. WILL CONTINUE TO MONITOR ACCORDINGLY.
[2020-02-05 07:40] LABS: BASOPHILS # (AUTO) 0.1 /CMM (0.0-0.2); BASOPHILS % (AUTO) 0.8 % (0.0-2.0); EOSINOPHILS % (AUTO) 4.8 % (0.0-6.0); HEMATOCRIT 24 % (39-51); HEMOGLOBIN 7.6 g/dL (13.5-17.5); LYMPHOCYTES # (AUTO) 2.1 /CMM (0.8-4.8); LYMPHOCYTES % (AUTO) 27.1 % (20.0-44.0); MEAN CORPUSCULAR HGB CONC 33 g/dl (31.0-36.0); MEAN CORPUSCULAR VOLUME 86 fL (80-96); MONOCYTES # (AUTO) 0.7 /CMM (0.1-1.30); MONOCYTES % (AUTO) 9.7 % (2.0-12.0); NEUTROPHILS # (AUTO) 4.4 /CMM (1.8-8.9); NEUTROPHILS % (AUTO) 57.6 % (43.0-81.0); PLATELET COUNT (AUTO) 326 /CMM (150-450); RED BLOOD CELL COUNT(AUTO) 2.74 MIL/uL (4.5-6.0); WHITE BLOOD COUNT (AUTO) 7.6 K/uL (4.3-11.0)
[2020-02-05] MEDS: IPRATROPIUM BROMIDE 14 GM INHALER (or 12.9 GM) IH PRN (07:52)
[2020-02-05 08:00] VITALS: BP 133/69
[2020-02-05 08:45] LABS: FERRITIN 1502 ng/mL (8-388)
[2020-02-05] MEDS: INSULIN GLARGINE, 100 UNIT/ML CARTRIDGE SQ SCH ×2 (09:00→21:59)
[2020-02-05] MEDS: FERROUS SULFATE UDC 300 MG/5 ML UDC GT SCH (09:00)
[2020-02-05] MEDS: LACTOBACILLUS RHAMNOSUS GG 1 EACH CAP.SPRINK GT SCH ×2 (09:00→21:00)
[2020-02-05] MEDS: DOCUSATE SODIUM LIQ 100 MG/10 ML UDC GT SCH ×2 (09:00→21:00)
[2020-02-05] MEDS: FAMOTIDINE (20 MG) 20 MG TABLET GT SCH (09:00)
[2020-02-05] MEDS: K PHOS NEUTRAL 250 MG TABLET GT SCH (09:00)
--- NOTE | 2020-02-05 09:10 | NUR ---
MS RN NOTES DR JOSH NIEOT PRESENT ON THE FLOOR MADE ARE REGARDING G TUBE DISLODGE LAST NIGHT AND PATIENT FOR GI CONSULT AND FEEDING AND MEDICATIONS ON HOLD AT THIS TIME.
[2020-02-05] MEDS: POLYVINYL ALCOHOL 15 ML BOTTLE EACHEYE SCH ×2 (09:16→17:33)
[2020-02-05] MEDS: Z GUARD REMEDY 2 OZ OINT TP SCH (09:17)
[2020-02-05 09:21] LABS: IRON, SERUM 42 ug/dl (50-175); TOTAL IRON BINDING CAPACITY 171 ug/dl (250-450)
--- NOTE | 2020-02-05 13:30 | NUR ---
MS RN NOTES FOLLOW UP WITH DR TERRAZAS REGARDING CONSULT FOR GT INSERTION, STATED HE WILL COME SEE PATIENT AND HAVE SUPPLIES READY FOR INSERTION, CALLED [facility] TO ORDER SPOKE WITH SYDNIE
[2020-02-05 16:00] VITALS: BP 129/68
--- NOTE | 2020-02-05 18:58 | NUR ---
SUPPLY CHAIN PLANNER NOTES PATIENT IN BED NON VERBAL, HOB ELEVATED. NO ACUTE DISTRESS NOTED. BREATHING UNLABORED. NO SOB NOTED. IV ACCESS PATENT AND INTACT, NO REDNESS, NO SWELLING NOTED.HD ACCESS INTACT WITH DRESSING CLEAN AND DRY. SAFETY MEASURES IN PLACE. CALL LIGHT WITHIN REACH. PATIENT FOR TUBE FEEDING INSERTION BY DR TERRAZAS TODAY, SUPPLIES NEEDED BY MD AT BEDSIDE. OLD DIALYSIS ACCESS FOR REMOVAL TOMORROW WITH HD PER DR JOSH NIETO AND DIALYSIS NURSE ALLAN.WILL ENDORSE TO NIGHT NURSE FOR CONTINUITY OF CARE.
--- NOTE | 2020-02-05 19:35 | NUR ---
SOD FARMER OPENING NOTES PATIENT RECEIVED RESTING IN BED A/OX 0 OBTUNDED AND NON VERBAL. TOLERATING VENT SETTINGS WELL WITH BREATHING EVEN AND UNLABORED, NO SOB NOTED. NO SIGNS OF ACUTE DISTRESS. NO COMPLAINTS OF PAIN OR DISCOMFORT- NO FACIAL GRIMACING NOTED. IV LOCATED ON L HAND RUNNING D5 @ 30 CC/ HR. GTUBE NOTED BUT DISLODGED. HD PERMA CATH LOCATED ON R GROIN AND L CHEST. SAFETY PRECAUITONS IN PLACE WITH BED IN LOWEST POSITION, CALL LIGHT WITHIN REACH, BREAKS ON, SIDE RAILS UP. WILL CONTINUE TO MONITOR THROUGHOUT THE NIGHT.
[2020-02-05 20:00] VITALS: BP 141/97
--- NOTE | 2020-02-05 22:00 | NUR ---
RISK CONTROL MANAGER NOTES NON ADMINISTERED MEDICATIONS DUE TO DISLODGED GTUBE- AWAITING REINSERTION. DID NOT ADMINISTER LANTUS, PATIENT NOT RECEIVING FEEDING. WILL CONTINUE TO MONITOR.
--- NOTE | 2020-02-05 23:57 | NUR ---
HEALTHCARE MANAGEMENT NOTE FSBS 138 NO INSULIN GIVEN, PATIENT NOT RECEIVING FEEDING
[2020-02-06] VITALS: BP 154/94
[2020-02-06] MEDS: IPRATROPIUM BROMIDE 14 GM INHALER (or 12.9 GM) IH SCH ×4 (01:59→19:34)
[2020-02-06 04:00] VITALS: BP 137/79
[2020-02-06] MEDS: BLOOD SUGAR DIAGNOSTIC 1 EACH STRIP IN SCH ×4 (06:06→23:30)
--- NOTE | 2020-02-06 06:46 | NUR ---
ENVIRONMENTAL TEST TECHNICIAN CLOSING NOTES PATIENT RESTING IN BED A/OX 0 OBTUNDED AND NON VERBAL. TOLERATING VENT SETTINGS WELL WITH BREATHING EVEN AND UNLABORED, NO SOB NOTED. NO SIGNS OF ACUTE DISTRESS. NO COMPLAINTS OF PAIN OR DISCOMFORT- NO FACIAL GRIMACING NOTED. IV LOCATED ON L HAND RUNNING D5 @ 30 CC/ HR. GTUBE NOTED BUT DISLODGED. HD PERMA CATH LOCATED ON R GROIN AND L CHEST. SAFETY PRECAUTIONS IN PLACE WITH BED IN LOWEST POSITION, CALL LIGHT WITHIN REACH, BREAKS ON, SIDE RAILS UP. ALL NEEDS ATTENDED TO, PATIENT KEPT CLEAN AND DRY THROUGHOUT THE NIGHT. WILL ENDORSE TO ONCOMING SHIFT ABOUT SHARON.
--- NOTE | 2020-02-06 07:10 | NUR ---
VALVE REPAIRER RECLAMATION NOTES PATIENT IN BED NON VERBAL, HOB ELEVATED. ON VENT SET TO ORDERED SETTING. NO ACUTE DISTRESS NOTED. BREATHING UNLABORED. NO SOB NOTED. IV ACCESS PATENT AND INTACT, NO REDNESS, NO SWELLING NOTED.HD ACCESS INTACT WITH DRESSING CLEAN AND DRY. SAFETY MEASURES IN PLACE. CALL LIGHT WITHIN REACH. WILL CONTINUE TO MONITOR ACCORDINGLY.
[2020-02-06 08:00] VITALS: BP 156/98
[2020-02-06] MEDS: LACTOBACILLUS RHAMNOSUS GG 1 EACH CAP.SPRINK GT SCH ×2 (09:00→21:00)
[2020-02-06] MEDS: K PHOS NEUTRAL 250 MG TABLET GT SCH (09:00)
[2020-02-06] MEDS: MIDODRINE HCL (5MG) 5 MG TABLET GT SCH (09:00)
[2020-02-06] MEDS: INSULIN GLARGINE, 100 UNIT/ML CARTRIDGE SQ SCH ×2 (09:00→22:00)
[2020-02-06] MEDS: DOCUSATE SODIUM LIQ 100 MG/10 ML UDC GT SCH ×2 (09:00→21:00)
[2020-02-06] MEDS: FAMOTIDINE (20 MG) 20 MG TABLET GT SCH (09:00)
[2020-02-06] MEDS: FERROUS SULFATE UDC 300 MG/5 ML UDC GT SCH (09:00)
[2020-02-06] MEDS: POLYVINYL ALCOHOL 15 ML BOTTLE EACHEYE SCH ×2 (09:15→17:15)
[2020-02-06] MEDS: Z GUARD REMEDY 2 OZ OINT TP SCH (09:17)
--- NOTE | 2020-02-06 10:30 | NUR ---
STONE CRUSHER OPERATOR NOTES STARTED DIALYSIS BY DIALYSIS NURSE KARYNA, PATIENT WITH STABLE VITAL SIGNS.
--- NOTE | 2020-02-06 13:00 | NUR ---
COVER MAKING MACHINE OPERATOR NOTES DIALYSIS DONE BY DIALYSIS NURSE KARYNA, PATIENT WITH STABLE VITAL SIGNS. RIGHT GROIN DIALYSIS ACCESS REMOVED BY DIALYSIS NURSE KARYNA, PATIENT TOLERATED WELL, DRESSING ON RIGHT GROIN CLEAN DRY AND INTACT. NO BLEEDING NOTED ON RIGHT GROIN. Addendum: 02/06/20 at 1851 by DEEP CHISHOLM RN ADDENDUM DIALYSIS 1.5L OUT PER DIALYSIS NURSE TRONCOSO
--- NOTE | 2020-02-06 13:12 | NUR ---
MS RN NOTES PATIENT SEEN AND EVALUATED OMID CASTANON WITH NEW ORDER TO KEEP NPO FOR EGD WITH PEG PLACEMENT 02/07/2020 @ 1200, CONSENT AND PT/INR IN AM. ORDER CLARIFIED AND READ BACK, NOTED AND CARRIED OUT.
[2020-02-06 16:00] VITALS: BP 130/74
[2020-02-06] MEDS ORDERED: VANCOMYCIN 1 GM in IV D5W 250 ML IV ONE (16:00)
--- NOTE | 2020-02-06 19:00 | NUR ---
PUBLICITY DIRECTOR NOTES PATIENT IN BED NON VERBAL, HOB ELEVATED. ON VENT SET TO ORDERED SETTING. NO ACUTE DISTRESS NOTED. BREATHING UNLABORED. NO SOB NOTED. IV ACCESS PATENT AND INTACT, NO REDNESS, NO SWELLING NOTED.HD ACCESS INTACT WITH DRESSING CLEAN AND DRY. RIGHT GROIN DRESSING CLEAN DRY AND INTACT , NO BLEEDING NOTED. NEEDS ATTENDED AND ANTICIPATED. REPOSITIONED EVERY 2 HOURS AND NEEDED. SAFETY MEASURES IN PLACE. CALL LIGHT WITHIN REACH. WILL ENDORSE TO NIGHT NURSE FOR CONTINUITY OF CARE.
--- NOTE | 2020-02-06 19:45 | NUR ---
METER MECHANIC OPENING NOTES PATIENT RECEIVED RESTING IN BED A/O X0 OBTUNDED. TOLERATING VENT SETTING WELL WITH BREATHING EVEN AND UNLABORED, NO SOB NOTED. NO SIGNS OF ACUTE DISTRESS. NO COMPLAINTS OF PAIN OR DISCOMFORT- NO FACIAL GRIMACING NOTED. TELE MONITOR READING SR. NO IV ACCESS AT THE MOMENT. PERMCATH NOTED ON L CHEST WALL. SAFETY PRECAUTIONS IN PLACE WITH BED IN LOWEST POSITION, CALL LIGHT WITHIN REACH, BREAKS ON, SIDE RAILS UP. WILL CONTINUE TO MONITOR THROUGHOUT THE SHIFT.
[2020-02-06 20:00] VITALS: BP 146/89
--- NOTE | 2020-02-06 20:02 | NUR ---
RT Pt trach remains on [facility] vent AC settings t/o the night. no resp distress noted. TX given inline. Trach secure and patent. alarms on and audible. will continue to monitor t/o shift. Addendum: 02/06/20 at 2002 by MIRIAN PIERCE RT Amended: Links added.
[2020-02-06] MEDS: IV D5/ 0.9% NACL 1,000 ML IV PRN (22:40)
--- NOTE | 2020-02-06 23:30 | NUR ---
UKE OPERATOR NOTES FSBS 162 NO INSULIN COVERAGE, PT NPO DUE TO SURGERY AND NOT RECEIVING GTUBE FEEDING. 2200 MEDS NOT ADMINISTERED.
[2020-02-07] VITALS: BP 127/90
[2020-02-07] MEDS: IPRATROPIUM BROMIDE 14 GM INHALER (or 12.9 GM) IH SCH ×4 (00:34→19:35)
[2020-02-07 04:00] VITALS: BP 155/95
[2020-02-07] MEDS: BLOOD SUGAR DIAGNOSTIC 1 EACH STRIP IN SCH ×3 (06:16→18:12)
--- NOTE | 2020-02-07 06:37 | NUR ---
DUMPER OPERATOR NOTES FSBS 132, NO INSULIN COVERAGE. PT NPO DUE TO SXURGERY
--- NOTE | 2020-02-07 06:49 | NUR ---
DEFECT REPAIRER GLASSWARE CLOSING NOTES PATIENT RESTING IN BED A/O X0 OBTUNDED. TOLERATING VENT SETTING WELL WITH BREATHING EVEN AND UNLABORED, NO SOB NOTED. NO SIGNS OF ACUTE DISTRESS. NO COMPLAINTS OF PAIN OR DISCOMFORT- NO FACIAL GRIMACING NOTED. TELE MONITOR READING SR. NO IV ACCESS AT THE MOMENT. PERMCATH NOTED ON L CHEST WALL. SAFETY PRECAUTIONS IN PLACE WITH BED IN LOWEST POSITION, CALL LIGHT WITHIN REACH, BREAKS ON, SIDE RAILS UP. ALL NEEDS ATTENDED TO, PATIENT KETPT CLEAN AND DRY. WILL ENDORSE TO ONCOMING SHIFT ABOUT SHARON.
--- NOTE | 2020-02-07 07:30 | NUR ---
PT RECEIVED RESTING COMFORTABLY IN BED. NO S/S OR C/O PAIN OR DISTRESS NOTED. SIDE RAILS UP X2, CALL LIGHT LEFT WITHIN REACH. WILL CONTINUE PLAN OF CARE.
[2020-02-07 07:37] LABS: CALCIUM, SERUM 8.6 mg/dL (8.5-10.1); CREATININE 6.4 mg/dL (0.6-1.3); POTASSIUM 4.3 mmol/L (3.5-5.1)
[2020-02-07 07:38] LABS: BASOPHILS % (AUTO) 0.9 % (0.0-2.0); EOSINOPHILS % (AUTO) 6.5 % (0.0-6.0); HEMATOCRIT 24 % (39-51); HEMOGLOBIN 7.9 g/dL (13.5-17.5); LYMPHOCYTES # (AUTO) 0.9 /CMM (0.8-4.8); LYMPHOCYTES % (AUTO) 17.4 % (20.0-44.0); MEAN CORPUSCULAR HGB CONC 33 g/dl (31.0-36.0); MEAN CORPUSCULAR VOLUME 86 fL (80-96); MONOCYTES # (AUTO) 0.5 /CMM (0.1-1.30); MONOCYTES % (AUTO) 10.4 % (2.0-12.0); NEUTROPHILS # (AUTO) 3.3 /CMM (1.8-8.9); NEUTROPHILS % (AUTO) 64.8 % (43.0-81.0); PLATELET COUNT (AUTO) 312 /CMM (150-450); RED BLOOD CELL COUNT(AUTO) 2.74 MIL/uL (4.5-6.0)
[2020-02-07] MEDS: INSULIN GLARGINE, 100 UNIT/ML CARTRIDGE SQ SCH ×2 (08:33→22:00)
[2020-02-07] MEDS: POLYVINYL ALCOHOL 15 ML BOTTLE EACHEYE SCH ×2 (08:34→17:03)
[2020-02-07] MEDS: Z GUARD REMEDY 2 OZ OINT TP SCH (08:34)
[2020-02-07] MEDS: DOCUSATE SODIUM LIQ 100 MG/10 ML UDC GT SCH ×2 (09:00→21:50)
[2020-02-07] MEDS: LACTOBACILLUS RHAMNOSUS GG 1 EACH CAP.SPRINK GT SCH ×2 (09:00→21:50)
[2020-02-07 15:57] VITALS: BP 155/99
[2020-02-07] MEDS: K PHOS NEUTRAL 250 MG TABLET GT SCH (17:02)
[2020-02-07] MEDS: FAMOTIDINE (20 MG) 20 MG TABLET GT SCH (17:02)
[2020-02-07] MEDS: FERROUS SULFATE UDC 300 MG/5 ML UDC GT SCH (17:02)
--- NOTE | 2020-02-07 18:14 | NUR ---
CHANGE OF SHIFT REPORT PT RESTING COMFORTABLY IN BED. NO S/S OR C/O PAIN OR DISTRESS NOTED. SIDE RAILS UP X2, CALL LIGHT LEFT WITHIN REACH. PT KEPT CLEAN, DRY, AND COMFORTABLE. NO SIGNIFICANT CHANGES SINCE PREVIOUS SHIFT. WILL GIVE REPORT TO CITLALY VELEZ.
--- NOTE | 2020-02-07 19:10 | NUR ---
PARACHUTE/COMBATANT DIVER OFFICER NOTES RECEIVED PT IN BED RESTING. PT A/O X 0 OBTUNDED AND OPENS EYES. TOLERATING VENT SETTING WELL, BREATHING EVEN AND UNLABORED, NO SOB NOTED THROUGHOUT SHIFT. NO S/S OF PAIN AT THIS TIME. PT NOTED WITH GTUBE. IV INFUSING D5NS @30CC/HR. SAFETY MEASURES IN PLACE WITH BED IN LOWEST POSITION, CALL LIGHT WITHIN REACH, WITH SIDE RAILS UP X2. CALL LIGHT WITHIN REACH. WILL CONTINUE TO MONITOR.
[2020-02-07 20:00] VITALS: BP 138/83
[2020-02-08] VITALS: BP 117/50
[2020-02-08] MEDS: BLOOD SUGAR DIAGNOSTIC 1 EACH STRIP IN SCH ×3 (00:53→12:39)
[2020-02-08] MEDS: IPRATROPIUM BROMIDE 14 GM INHALER (or 12.9 GM) IH SCH ×3 (01:32→14:37)
[2020-02-08 04:22] VITALS: BP 160/95
[2020-02-08] MEDS: IV D5/ 0.9% NACL 1,000 ML IV PRN (05:57)
[2020-02-08 07:28] LABS: CALCIUM, SERUM 8.8 mg/dL (8.5-10.1); POTASSIUM 5.3 mmol/L (3.5-5.1)
[2020-02-08 07:30] LABS: CREATININE 7.6 mg/dL (0.6-1.3)
--- NOTE | 2020-02-08 07:36 | NUR ---
TOURISM RADIO PRESENTER NOTES RECEIVED PT IN BED RESTING. PT A/O X 0 OBTUNDED AND OPENS EYES. TOLERATING VENT SETTING WELL, BREATHING EVEN AND UNLABORED, NO SOB NOTED THROUGHOUT SHIFT. NO S/S OF PAIN AT THIS TIME. PT NOTED WITH GTUBE. PT KEPT CLEAN, DRY, AND COMFORTABLE. IV INFUSING D5NS @30CC/HR. SAFETY MEASURES IN PLACE WITH BED IN LOWEST POSITION, CALL LIGHT WITHIN REACH, WITH SIDE RAILS UP X2. CALL LIGHT WITHIN REACH. WILL ENDORSE TO ONCOMING NURSE FOR SHARON.
--- NOTE | 2020-02-08 07:45 | NUR ---
DIRECTOR OF QUALITY CONTROL OPENING NOTES RECEIVED PATIENT IN BED SLEEPING COMFORTABLY. PATIENT ON VENT, TOLERATING VENT SETTINGS WELL. PATIENT IN NO ACUTE DISTRESS. NO SOB NOTED. PATIENT BREATHING IS EVEN AND UNLABORED. PATIENT ON CARDIAC MONITORING READING SINUS RHYTHM HR 84. PATIENT BED ALARM IS ON. SAFETY PRECAUTIONS IN PLACE. PATIENT BED IS LOCKED AND IN LOWEST POSITION. CALL LIGHT WITHIN REACH. WILL CONTINUE TO MONITOR.
[2020-02-08] MEDS: FERROUS SULFATE UDC 300 MG/5 ML UDC GT SCH (08:56)
[2020-02-08] MEDS: DOCUSATE SODIUM LIQ 100 MG/10 ML UDC GT SCH (08:56)
[2020-02-08] MEDS: LACTOBACILLUS RHAMNOSUS GG 1 EACH CAP.SPRINK GT SCH (08:57)
[2020-02-08] MEDS: POLYVINYL ALCOHOL 15 ML BOTTLE EACHEYE SCH (08:57)
[2020-02-08] MEDS: K PHOS NEUTRAL 250 MG TABLET GT SCH (08:57)
[2020-02-08] MEDS: FAMOTIDINE (20 MG) 20 MG TABLET GT SCH (08:57)
[2020-02-08] MEDS: Z GUARD REMEDY 2 OZ OINT TP SCH (08:59)
[2020-02-08] MEDS: INSULIN GLARGINE, 100 UNIT/ML CARTRIDGE SQ SCH (09:00)
[2020-02-08] MEDS: NEPRO 1,000 ML BOTTLE GT PRN (09:06)
--- NOTE | 2020-02-08 09:40 | NUR ---
DISPOSAL OPERATOR NOTES PATIENT CREATININE 7.6. DR. NIETO MADE AWARE. ALLAN VELEZ CURRENTLY UNDERGOING DIALYSIS WITH THE PATIENT AT THIS TIME.
--- NOTE | 2020-02-08 09:59 | NUR ---
BEHAVIORAL INTERVENTION SPECIALIST NOTE PATIENT GTUBE FEEDINGS INFUSING AT 45ML/HR AND TOLERATING WELL.
[2020-02-08 12:00] VITALS: BP 134/87
[2020-02-08] MEDS: INSULIN REGULAR, HUMAN 100 UNIT/ML 3 ML VIAL SQ PRN (12:38)
[2020-02-08] MEDS ORDERED: PROSOURCE / PROSTAT (PYXIS) 30 ML UDC GT SCH (14:00)
--- NOTE | 2020-02-08 15:40 | NUR ---
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 PATIENT ON MECHANICAL VENT, TOLERATING VENT SETTINGS WELL. PATIENT IN NO ACUTE DISTRESS. NO SOB NOTED. PATIENT BREATHING IS EVEN AND UNLABORED. PATIENT IV REMOVED. ID BAND REMOVED. PATIENT DC INSTRUCTIONS PROVIDED. PATIENT UNABLE TO COMPREHEND. DC PAPERWORK SIGNED BY TWO NURSES. PATIENT BELONGINGS LIST SIGNED BY TWO NURSES, NO BELONGINGS PER BELONGINGS LIST. PATIENT KEPT CLEAN, DRY, AND COMFORTABLE THROUGHOUT SHIFT. PATIENT SKIN ASSESSED, NO NEW SKIN BREAKDOWN NOTED. GAVE REPORT TO HOLLIE VELEZ AT [facility]. PATIENT GOING BY AMBULANCE WITH TWO [facility] PROFESSIONALS AND RT PRESENT TO TAKE PATIENT TO [facility]. MD AWARE OF DISCHARGE.
== END 2020-02-08 15:45 | DRG 721 ==
LOC: ER 14:53 → TELE1 19:02 → TELE 01-18 22:59
PROVIDERS: ADMIT Internal Medicine Nephrology; ATTEND Internal Medicine
PROC: 5A1955Z Respiratory Ventilation, Greater than 96 Consecutive Hours (ICD-10-PCS; 2020-01-16)
PROC: 5A1D70Z Performance of Urinary Filtration, Intermittent, Less than 6 Hours Per Day (ICD-10-PCS; 2020-01-17)
PROC: 05PY33Z Removal of Infusion Device from Upper Vein, Percutaneous Approach (ICD-10-PCS; principal; 2020-01-18)
PROC: B54BZZA Ultrasonography of Right Lower Extremity Veins, Guidance (ICD-10-PCS; 2020-01-23)
PROC: 06HM33Z Insertion of Infusion Device into Right Femoral Vein, Percutaneous Approach (ICD-10-PCS; 2020-01-23)
PROC: 5A09357 Assistance with Respiratory Ventilation, Less than 24 Consecutive Hours, Continuous Positive Airway Pressure (ICD-10-PCS; 2020-01-26)
PROC: 05H633Z Insertion of Infusion Device into Left Subclavian Vein, Percutaneous Approach (ICD-10-PCS; 2020-02-02)
PROC: B517YZA Fluoroscopy of Left Subclavian Vein using Other Contrast, Guidance (ICD-10-PCS; 2020-02-02)
PROC: 0JHF3XZ Insertion of Tunneled Vascular Access Device into Left Upper Arm Subcutaneous Tissue and Fascia, Percutaneous Approach (ICD-10-PCS; 2020-02-02)
PROC: 0DH63UZ Insertion of Feeding Device into Stomach, Percutaneous Approach (ICD-10-PCS; 2020-02-07)
DX: T80.211A Bloodstream infection due to central venous catheter, initial encounter (principal); Z99.11 Dependence on respirator [ventilator] status; G93.1 Anoxic brain damage, not elsewhere classified; J90 Pleural effusion, not elsewhere classified; J96.10 Chronic respiratory failure, unspecified whether with hypoxia or hypercapnia; R13.10 Dysphagia, unspecified; E11.22 Type 2 diabetes mellitus with diabetic chronic kidney disease; I12.0 Hypertensive chronic kidney disease with stage 5 chronic kidney disease or end stage renal disease; Y84.1 Kidney dialysis as the cause of abnormal reaction of the patient, or of later complication, without mention of misadventure at the time of the procedure; Y92.129 Unspecified place in nursing home as the place of occurrence of the external cause; N18.6 End stage renal disease; N39.0 Urinary tract infection, site not specified; Z99.2 Dependence on renal dialysis; Z79.51 Long term (current) use of inhaled steroids; Z79.4 Long term (current) use of insulin; Z79.899 Other long term (current) drug therapy; J98.11 Atelectasis; Z86.74 Personal history of sudden cardiac arrest; K94.23 Gastrostomy malfunction; Y83.3 Surgical operation with formation of external stoma as the cause of abnormal reaction of the patient, or of later complication, without mention of misadventure at the time of the procedure; Y92.89 Other specified places as the place of occurrence of the external cause; D63.8 Anemia in other chronic diseases classified elsewhere
CPT/HCPCS: 31720; 36415; 43246; 71045-TC; 80048-TC; 80053-TC; 80202-TC; 81000-TC; 82550-TC; 82728-TC; 82962-TC; 83540-TC; 83605-TC; 83615-TC; 83735-TC; 84100-TC; 85025-TC; 85027-TC; 85378-TC; 85610-TC; 85730-TC; 86140-TC; 86706; 87040-TC; 87070-TC; 87081-TC; 87086-TC; 87186-TC; 87340; 90935-TC; 93307-TC; 94003-TC; 94640; 94664; 94760-TC; 94762-TC; A4623; A6253; A6403; A7526; C1750; C1751; C1769; G0378; J0690; J0692; J0885; J1642; J1644; J1815; J2704; J2997; J3370; J3490; J7042; J7050; J7060